=== PATIENT | female | born 1945 | race Caucasian/White ===

== ENCOUNTER 2019-05-15 16:00 | Outpatient (RCR) | payer MEDICARE, OTHER, SELFPAY ==
--- NOTE | 2019-05-10 16:53 | PT.OIE ---
Current Diagnoses Benign paroxysmal vertigo, left ear (05/10/19) Dizziness and giddiness (05/10/19) Past Medical History (Last Reviewed 01/27/19 @ 14:48 by Tiffany Greene DO) Hearing loss (Chronic) Sinus drainage (Chronic) Thyroid nodule (Chronic) Tinnitus (Chronic) Uterine cancer (Chronic ~2011) Vertigo (Chronic) Vision disorder (Chronic) Heavy menstrual period (Resolved) Neck pain (Resolved) Painful menstrual periods (Resolved) Past Surgical History (Last Reviewed 01/27/19 @ 14:48 by Tiffany Greene DO) Anesthesia (Resolved) Status post cholecystectomy (~1963) Status post hysterectomy (~2011) Provider Visit Care Team Role Provider Type Tiffany Greene DO Attending Provider Physician Primary Care Provider Specialty: Family Practice Address: [address] [place] [address] Email: [email or web address] Physical Therapy Initial Evaluation PT-OP-A Visit Information Start: 05/10/19 15:02 Freq: Status: Active Protocol: Document 05/10/19 14:30 DCW (Rec: 05/10/19 16:53 DCW [id number]) Out-Patient Physical Therapy Visit Information Visit Information Visit Type Initial Evaluation Visit Start Time 14:30 Visit Stop Time 15:02 Total Visit Minutes 32 Visit Number 1 Number of CD MIXER HELPER Visits 0 Evaluation Information Evaluation Date 05/10/19 PT-OP-B Current Condition Start: 05/10/19 15:02 Freq: Status: Active Protocol: Document 05/10/19 14:30 DCW (Rec: 05/10/19 16:53 DCW [id number]) Current Condition History of Current Condition Onset Date one month Current Complaints Position-dependent vertigo History of Current Condition Pt is a 73 year old female complaining of a one month history of motion-induced vertigo, as well as a generalized feeling of unsteadiness when up on her feet. 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 Pt reports episodes last a few seconds. Symptoms are provoked by position changes. Pt reports she attempted to do an Jung maneuver on herself from memory, but it did not work. Current Functional Impairments (Reported) Functional Limitations- Other Vertigo with position changes, as well as an overall sense of imbalance PT-OP-C Subjective Start: 05/10/19 15:02 Freq: Status: Active Protocol: Document 05/10/19 14:30 DCW (Rec: 05/10/19 16:53 DCW [id number]) OP-PT Subjective Patient Comments Patient Comments I was laying flat on my back about a month ago, and just knew something was wrong. As soon as I tried to sit up, the spinning started again. Patient Questionnaires Dizziness Handicap Inventory DHI Score 26% DHI Functional Impairment 20 to 39% Impaired (Score 20- 39) PT-OP-O Vestibular Start: 05/10/19 15:02 Freq: Status: Active Protocol: Document 05/10/19 14:30 DCW (Rec: 05/10/19 16:53 DCW [id number]) Vestibular Assessment Screening Tests Vestibular Artery Screen Negative Sharp-Ann Test Negative Visual Testing Smooth Pursuits Horizontal Negative Smooth Pursuits Vertical Negative Saccades Horizontal Negative Gaze Evoked Nystagmus With Fixation Negative Gaze Evoked Nystagmus Without Fixation Negative Heave Test Negative Thrust Head Negative Head Shake Negative Positional Testing S[place]-Hallpike Negative Left Negative Right Rolling Test Negative Left Negative Right Comments Vestibular Comments During left [place]-Hallpike: It just feels like it is right there about to start, it's just not quite spinning. PT-OP-Q Treatments Start: 05/10/19 15:02 Freq: Status: Active Protocol: Document 05/10/19 14:30 DCW (Rec: 05/10/19 16:53 DCW [id number]) Canalithic Repositioning BPPV Treatment Jung Affected Canal(s) Left posterior? Reps x2 PT-OP-T Assessment and Plan Start: 05/10/19 15:02 Freq: Status: Active Protocol: Document 05/10/19 14:30 DCW (Rec: 05/10/19 16:53 DCW [id number]) Physical Therapy Assessment Rehab Potential Rehabilitation Potential Excellent Evaluation Complexity Number of Personal Factors/Comorbidities 0 Number of Body Systems Impaired 1-2 Clinical Presentation at Evaluation Stable Impairments Impairments Balance Vestibular Goals Two Impairment C/o discomfort/weird sensation in left asi-hallpike position Short Term Goal (STG) Negative hallpike bilaterally STG Duration 06/09/19 One Impairment Pt experiences vertigo with laying down in bed, specifically on her left Short Term Goal (STG) Pt to change position in bed with no episode of vertigo for two weeks STG Duration 05/24/19 Assessment Summary Assessment Pt presents with a largely negative vestibular assessment , other than complaints of feeling like I'm about to start spinning, it just isn't happening in left [place]- Hallpike position. However, with her reported symptoms and her history of prior BPPV, a left Jung maneuver was performed. Upon testing pt a second time, pt reported no unusual feeling or sensation, and a second Jung maneuver was performed. Pt felt much better upon sitting, and her sensation of generalized imbalance went away when she was walking out of the clinic. 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 If this is the case, an Jung maneuver can still be effective, and pt may have had a successful treatment. Pt to return in ~1 week for a follow-up appointment, and intermittently afterward as indicated for treatment of BPPV. Physical Therapy Plan Frequency and Duration Frequency of Treatment 1x/Week Duration of Treatment 6 weeks Plan of Care Start Date 05/10/19 Plan of Care End Date 06/21/19 Therapeutic Interventions Therapeutic Interventions Balance Training Canalithic Repositioning Vestibular Rehabilitation Next Visit Focus/Plan Next Note Type Treatment Note Next Visit Plan Further positional testing, CRM and vestibular rehabilitation as indicated
--- NOTE | 2019-05-10 16:54 | PT.OPPOC ---
Current Diagnoses Benign paroxysmal vertigo, left ear (05/10/19) Dizziness and giddiness (05/10/19) Provider Visit Care Team Role Provider Type Tiffany Greene DO Attending Provider Physician Primary Care Provider Specialty: [facility] Address: [address] [place] [address], [id number] Email: [email or web address] Plan Of Care PT-OP-T Assessment and Plan Start: 05/10/19 15:02 Freq: Status: Active Protocol: Document 05/10/19 14:30 DCW (Rec: 05/10/19 16:53 DCW [id number]) Physical Therapy Assessment Rehab Potential Rehabilitation Potential Excellent Evaluation Complexity Number of Personal Factors/Comorbidities 0 Number of Body Systems Impaired 1-2 Clinical Presentation at Evaluation Stable Impairments Impairments Balance Vestibular Goals Two Impairment C/o discomfort/weird sensation in left sai-hallpike position Short Term Goal (STG) Negative hallpike bilaterally STG Duration 06/09/19 One Impairment Pt experiences vertigo with laying down in bed, specifically on her left Short Term Goal (STG) Pt to change position in bed with no episode of vertigo for two weeks STG Duration 05/24/19 Assessment Summary Assessment Pt presents with a largely negative vestibular assessment , other than complaints of feeling like I'm about to start spinning, it just isn't happening in left [place]- Hallpike position. However, with her reported symptoms and her history of prior BPPV, a left Jung maneuver was performed. Upon testing pt a second time, pt reported no unusual feeling or sensation, and a second Jung maneuver was performed. Pt felt much better upon sitting, and her sensation of generalized imbalance went away when she was walking out of the clinic. 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 If this is the case, an Jung maneuver can still be effective, and pt may have had a successful treatment. Pt to return in ~1 week for a follow-up appointment, and intermittently afterward as indicated for treatment of BPPV. Physical Therapy Plan Frequency and Duration Frequency of Treatment 1x/Week Duration of Treatment 6 weeks Plan of Care Start Date 05/10/19 Plan of Care End Date 06/21/19 Therapeutic Interventions Therapeutic Interventions Balance Training Canalithic Repositioning Vestibular Rehabilitation Next Visit Focus/Plan Next Note Type Treatment Note Next Visit Plan Further positional testing, CRM and vestibular rehabilitation as indicated Plan of Care Dates Plan of Care Start Date 05/10/19 Plan of Care End Date 06/21/19 Please Sign and Return: I have reviewed this Plan of Care and certify that the skilled therapy services above are required to meet the patient?s needs. Physician Signature Date Printed Name and Credentials Clinical Instructor Signature Printed Name and Credentials
--- NOTE | 2019-05-15 16:18 | PT.OTN ---
Current Diagnoses Benign paroxysmal vertigo, left ear (05/15/19) Dizziness and giddiness (05/15/19) Physical Therapy Treatment Note PT-OP-A Visit Information Start: 05/10/19 15:02 Freq: Status: Active Protocol: Document 05/15/19 16:00 DCW (Rec: 05/15/19 16:17 DCW [id number]) Out-Patient Physical Therapy Visit Information Visit Information Visit Type Treatment Note Visit Start Time 16:00 Visit Stop Time 16:12 Total Visit Minutes 12 Visit Number 2 Number of MORTGAGE COUNSELOR Visits 0 Evaluation Information Evaluation Date 05/10/19 PT-OP-B Current Condition Start: 05/10/19 15:02 Freq: Status: Active Protocol: Document 05/10/19 14:30 DCW (Rec: 05/10/19 16:53 DCW [id number]) Current Condition History of Current Condition Onset Date one month Current Complaints Position-dependent vertigo History of Current Condition Pt is a 73 year old female complaining of a one month history of motion-induced vertigo, as well as a generalized feeling of unsteadiness when up on her feet. 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 Pt reports episodes last a few seconds. Symptoms are provoked by position changes. Pt reports she attempted to do an Jung maneuver on herself from memory, but it did not work. Current Functional Impairments (Reported) Functional Limitations- Other Vertigo with position changes, as well as an overall sense of imbalance PT-OP-C Subjective Start: 05/10/19 15:02 Freq: Status: Active Protocol: Document 05/15/19 16:00 DCW (Rec: 05/15/19 16:17 DCW [id number]) OP-PT Subjective Patient Comments Patient Comments Pt notes I haven't had that weird feeling since I left here last week. Patient Reported Progress Improving PT-OP-O Vestibular Start: 05/10/19 15:02 Freq: Status: Active Protocol: Document 05/15/19 16:00 DCW (Rec: 05/15/19 16:17 DCW [id number]) Vestibular Assessment Positional Testing [place]-Hallpike Negative Left Negative Right Rolling Test Negative Left Negative Right PT-OP-Q Treatments Start: 05/10/19 15:02 Freq: Status: Active Protocol: Document 05/15/19 16:00 DCW (Rec: 05/15/19 16:17 DCW [id number]) Canalithic Repositioning BPPV Treatment Jung Affected Canal(s) Left posterior PT-OP-T Assessment and Plan Start: 05/10/19 15:02 Freq: Status: Active Protocol: Document 05/15/19 16:00 DCW (Rec: 05/15/19 16:17 DCW [id number]) Physical Therapy Assessment Impairments Impairments Balance Vestibular Goals Two Impairment C/o discomfort/weird sensation in left [place]-hallpike position Short Term Goal (STG) Negative hallpike bilaterally STG Duration 06/09/19 One Impairment Pt experiences vertigo with laying down in bed, specifically on her left Short Term Goal (STG) Pt to change position in bed with no episode of vertigo for two weeks STG Duration 05/24/19 Assessment Summary Assessment Pt reported no further symptoms, either at home since her Jung maneuver, or today during the [place]-Hallpike test. Due to the dependent positioning of the [place]- Hallpike, and the possibility of loose otoconia falling into the canal uring testing, an Jung maneuver was done as a precaution. Pt had no nystagmus and reported no symptoms at any time. Pt would like to have her chart open for one month before discharge , as she has already had one recurrence of BPPV. Physical Therapy Plan Frequency and Duration Frequency of Treatment 1x/Week Duration of Treatment 6 weeks Plan of Care Start Date 05/10/19 Plan of Care End Date 06/21/19 Therapeutic Interventions Therapeutic Interventions Balance Training Canalithic Repositioning Vestibular Rehabilitation Next Visit Focus/Plan Next Note Type Treatment Note Next Visit Plan Further positional testing, CRM and vestibular rehabilitation as indicated. Discharge if pt does not return for treatment within one month.
--- NOTE | 2019-07-01 12:29 | PT.OPDS ---
Current Diagnoses Benign paroxysmal vertigo, left ear (05/15/19) Dizziness and giddiness (05/15/19) Provider Visit Care Team Role Provider Type Tiffany Greene DO Attending Provider Physician Primary Care Provider Specialty: [facility] Address: [address] [place] [address], [facility] Email: [email or web address] Visit Number Visit Number 2 Discharge Summary PT-OP-B Current Condition Start: 05/10/19 15:02 Freq: Status: Active Protocol: Document 05/10/19 14:30 DCW (Rec: 05/10/19 16:53 DCW [id number]) Current Condition History of Current Condition Onset Date one month Current Complaints Position-dependent vertigo History of Current Condition Pt is a 73 year old female complaining of a one month history of motion-induced vertigo, as well as a generalized feeling of unsteadiness when up on her feet. 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 Pt reports episodes last a few seconds. Symptoms are provoked by position changes. Pt reports she attempted to do an Jung maneuver on herself from memory, but it did not work. Current Functional Impairments (Reported) Functional Limitations- Other Vertigo with position changes, as well as an overall sense of imbalance PT-OP-C Subjective Start: 05/10/19 15:02 Freq: Status: Active Protocol: Document 05/15/19 16:00 DCW (Rec: 05/15/19 16:17 DCW [id number]) OP-PT Subjective Patient Comments Patient Comments Pt notes I haven't had that weird feeling since I left here last week. Patient Reported Progress Improving PT-OP-O Vestibular Start: 05/10/19 15:02 Freq: Status: Active Protocol: Document 05/15/19 16:00 DCW (Rec: 05/15/19 16:17 DCW [id number]) Vestibular Assessment Positional Testing [place]-Hallpike Negative Left Negative Right Rolling Test Negative Left Negative Right PT-OP-T Assessment and Plan Start: 05/10/19 15:02 Freq: Status: Active Protocol: Document 07/01/19 12:28 DCW (Rec: 07/01/19 12:29 DCW [id number]) Physical Therapy Assessment Goals Two Impairment C/o discomfort/weird sensation in left sai-hallpike position Short Term Goal (STG) Negative hallpike bilaterally STG Duration Met One Impairment Pt experiences vertigo with laying down in bed, specifically on her left Short Term Goal (STG) Pt to change position in bed with no episode of vertigo for two weeks STG Duration Met Assessment Summary Assessment Pt had been instructed at her last visit to schedule a follow-up within one month if her symptoms recurred. Pt has not scheduled any further vestibular therapy appointments, and will be discharged from skilled PT at this time. Physical Therapy Plan Frequency and Duration Frequency of Treatment 1x/Week Duration of Treatment 6 weeks Plan of Care Start Date 05/10/19 Plan of Care End Date 06/21/19 Therapeutic Interventions Therapeutic Interventions Balance Training Canalithic Repositioning Vestibular Rehabilitation Discharge Physical Therapy Discharge Reasons Goals Met Next Visit Focus/Plan Next Note Type Discharge Summary
== END 2019-07-03 11:41 | disposition home or self-care (01) ==
LOC: PHYS 16:00
PROVIDERS: PCP Family Medicine; Visit Provider Family Medicine
DX: H81.12 Benign paroxysmal vertigo, left ear (principal)
CPT/HCPCS: 95992; 97161

== ENCOUNTER → 2019-07-16 14:32 | Outpatient (CLI) | payer MEDICARE, OTHER, SELFPAY ==
[2019-07-16 15:21] LABS: Blood Urea Nitrogen 12 mg/dL (7-17); Calcium 9.4 mg/dL (8.4-10.2); Carbon Dioxide 28 mmol/L (22-32); Chloride 102 mmol/L (98-107); Cholesterol 206 mg/dL (140-199); Estimated Glomerular Filt Rate > 60.0 mL/min (>60); Glucose 103 mg/dL (80-110); HDL Cholesterol 51 mg/dL (40-60); HEMOLYSIS < 15 (0-50); LDL Cholesterol Calculated 137 mg/dL (<100); Potassium 3.9 mmol/L (3.4-5.1); Sodium 140 mmol/L (137-145); Triglycerides 92 mg/dL (35-150)
[2019-07-16 16:02] LABS: TSH w/ Reflex to FT4 1.05 uIU/mL (0.47-4.68)
== END ==
PROVIDERS: PCP Family Medicine; Visit Provider Registered Nurse
DX: I10 Essential (primary) hypertension (principal)
CPT/HCPCS: 36415; 80048; 80061; 84443

== ENCOUNTER 2020-05-04 11:15 | Outpatient (RCR) | payer MEDICARE, OTHER, SELFPAY ==
--- NOTE | 2020-04-28 15:38 | PT.OIE ---
Current Diagnoses Meniere's disease, left ear (04/28/20) Dizziness and giddiness (04/28/20) Past Medical History (Last Reviewed 08/21/19 @ 13:02 by Tiffany Greene DO) Hearing loss (Chronic) Heavy menstrual period (Resolved) Neck pain (Resolved) Painful menstrual periods (Resolved) Sinus drainage (Chronic) Thyroid nodule (Chronic) Tinnitus (Chronic) Uterine cancer (Chronic ~2011) Vertigo (Chronic) Vision disorder (Chronic) Past Surgical History (Last Reviewed 08/21/19 @ 13:02 by Tiffany Greene DO) Anesthesia (Resolved) Status post cholecystectomy (~1963) Status post hysterectomy (~2011) Visit Care Team Role Provider Type Tiffany Greene DO Attending Provider Physician Primary Care Provider Referring Provider [facility]ty: [facility] Address: [address] [place] [address], [facility] Email: [email or web address] Physical Therapy Initial Evaluation PT-OP-A Visit Information Start: 04/28/20 09:27 Freq: Status: Active Protocol: Document 04/28/20 13:05 MB (Rec: 04/28/20 13:46 MB [id number]) Out-Patient Physical Therapy Visit Information Visit Information Visit Type Initial Evaluation Visit Note Medicare, unlimited visits Visit Start Time 13:05 Visit Stop Time 13:45 Total Visit Minutes 40 Visit Number 1 Evaluation Information Evaluation Date 04/28/20 PT-OP-B Current Condition Start: 04/28/20 09:27 Freq: Status: Active Protocol: Document 04/28/20 13:05 MB (Rec: 04/28/20 13:46 MB [id number]) Current Condition History of Current Condition Onset Date 04/23/2020 Current Complaints 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 She had PT in the past and was treated with maneuvers and got better . She has episodic events. She feels it most when she lies down. She notes that when she tips her head up and down , she can get it. She cannot hear in her right ear. Pt reports meningitis when she was little and has scar tissue in the right ear. Pt denies neck and head pain. She states that her eyes are jumpy. Treatment Goals Patient/Caregiver Goals To have maneuevers performed like before PT-OP-C Subjective Start: 04/28/20 09:27 Freq: Status: Active Protocol: Document 04/28/20 13:05 MB (Rec: 04/28/20 15:38 MB [id number]) OP-PT Subjective Patient Comments Patient Comments Pt states that she got along well with Luis, physical therapist, last PT course and that she would like this PT to perform BPPV maneuvers and treatment today even if you don't see anything. Patient Questionnaires Dizziness Handicap Inventory DHI Functional Impairment 1 to 19% Impaired (Score 1-19) OP-PT Pain Assessment Pain Assessment Grid Paper Pain Assessment Grid Completed No: No pain PT-OP-D Balance Start: 04/28/20 09:27 Freq: Status: Active Protocol: Document 04/28/20 13:05 MB (Rec: 04/28/20 15:38 MB [id number]) OP-PT Balance Assessment Sitting Balance Static Sitting Balance Ability Good Dynamic Sitting Balance Ability Good Sitting Balance Comments UE support with sitting after canalith repositioning maneuver Standing Balance Static Standing Balance Ability Fair Dynamic Standing Balance Ability Fair Standing Balance Comments Pt with unsteadiness after BPPV assessment and treatment and cannot perform Romberg, Romberg with eyes closed or other balance measure [place] Fall Scale Copyright Permission PT-OP-J Posture/Palpation/Skin Start: 04/28/20 09:27 Freq: Status: Active Protocol: Document 04/28/20 13:05 MB (Rec: 04/28/20 15:38 MB [id number]) Posture Evaluation Comments Posture Comments Forward head, rounded shoulders, poor cervical ROM PT-OP-K Range of Motion Start: 04/28/20 09:27 Freq: Status: Active Protocol: Document 04/28/20 13:05 MB (Rec: 04/28/20 15:38 MB [id number]) Cervical Spine Range of Motion Cervical Spine Active Testing Position Sitting Flexion 40 Extension 15 Rotation Left 40 Rotation Right 40 Comments Pt with limited passive extension with [place]-Hallpike that makes initial testing difficult and she also tends to flex her head, holding her head up, making positioning difficult Shoulder Goniometric Range of Motion Shoulder Left Shoulder ROM WFL Yes Testing Position Sitting right Shoulder ROM WFL Yes Testing Position Sitting PT-OP-O Vestibular Start: 04/28/20 09:27 Freq: Status: Active Protocol: Document 04/28/20 13:05 MB (Rec: 04/28/20 15:38 MB [id number]) Vestibular Assessment Visual Testing Gaze Evoked Nystagmus With Fixation Negative Gaze Evoked Nystagmus Without Fixation Negative Spontaneous Nystagmus Negative Positional Testing [place]-Hallpike Positive Left,Negative Right, Upbeating,< 60 Seconds Rolling Test Negative Left,Negative Right Comments Vestibular Comments Pt clearly states that she wants to be tested and treated for positional vertigo like she was before with therapist, Luis, and this limits PT assessment B shoulder flexion and elbow extension are normal PT-OP-Q Treatments Start: 04/28/20 09:27 Freq: Status: Active Protocol: Document 04/28/20 13:05 MB (Rec: 04/28/20 15:38 MB [id number]) Neuro Re-Education Treatment Vestibular Rehabilitation Canalith repositioning maneuver Comments Left posterior canalith repositioning maneuver--pt's nystagmus is delayed, faint and does wane, but it is difficult to exactly determine time, likely less than 60 sec Self-Care/Home Management Treatment Education Other Education Handout and education about BPPV, gentle movement of head and neck, cervical support at night for sleeping and increasing non-caffeinated fluid intake Canalithic Repositioning BPPV Treatment Other Comments Left posterior canalith repositioning maneuver PT-OP-T Assessment and Plan Start: 04/28/20 09:27 Freq: Status: Active Protocol: Document 04/28/20 13:05 MB (Rec: 04/28/20 15:38 [id number]) Physical Therapy Assessment Rehab Potential Rehabilitation Potential Good Evaluation Complexity Number of Personal Factors/Comorbidities 0 Number of Body Systems Impaired 1-2 Clinical Presentation at Evaluation Stable Impairments Impairments Balance,Functional Activities, Functional Mobility,Gait, Posture,ROM,Soft Tissue Mobility,Vestibular Goals Two Care Home Goal (LTG) Pt will present with no dizziness or nystagmus with rolling in bed or BPPV testing to improve bed mobility by 05/28/2020. LTG Duration 4 weeks One Care Home Goal (LTG) Pt will perform HEP including postural, cervical ROM, balance and VOR exercises with I to improve functional mobility and balance by 2019. LTG Duration 4 weeks Assessment Summary Assessment Pt is a 74 y/o female who arrives stating that she liked working with therapistLuis, and that she would like this therapist to assess and treat for positional vertigo like he did so that she can con't on like normal until she gets another flare of the vertigo. She is agreeable to working with this PT. Pt's reports of what she would like to have done during treatment makes PT assessment brief. More time spent on treatment. She presents with left posterior canalithiasis, and nystagmus has delayed onset and is very faint. It does appear less than 60 sec with regard to symptomology and so canalith repositioning maneuver performed this date. Pt guards her neck and so getting [place]- Hallpike position and maneuver positions is very difficult. She might need further BPPV treatment. She has limited cervical mobility. PT educates pt on benefits of exercises to help with neck, etc. In previous treatment courses, pt verbalizes that she only came for treatment of BPPV and then stopped PT. This might be a barrier to complete vestibular course. She states at the end of the eval that she would like to work this therapist as well as Luis. Physical Therapy Plan Frequency and Duration Frequency of Treatment 2x/Week Duration of Treatment 4 weeks Plan of Care Start Date 04/28/20 Plan of Care End Date 05/28/20 Therapeutic Interventions Therapeutic Interventions Balance Training,Canalithic Repositioning,Gait Training, Home Exercise Program,Joint Mobilizations,Manual Therapy, Neuromuscular Re-education, Patient/Caregiver Education, Self-Care/Home Management,Soft Tissue Mobilization, Therapeutic Activities, Therapeutic Exercises, Vestibular Rehabilitation Modalities Cold Pack/Ice Massage,Hot Packs Next Visit Focus/Plan Next Note Type Treatment Note Next Visit Plan Re-check BPPV and treat if needed
--- NOTE | 2020-04-28 15:38 | PT.OPPOC ---
Physical, Occupational & Speech Therapy At [facility] Current Diagnoses Meniere's disease, left ear (04/28/20) Dizziness and giddiness (04/28/20) Visit Care Team Role Provider Type Tiffany Greene DO Attending Provider Physician Primary Care Provider Referring Provider Specialty: [facility] Address: [address] [place] [address], [place], [address] Email: [email or web address] Plan Of Care PT-OP-T Assessment and Plan Start: 04/28/20 09:27 Freq: Status: Active Protocol: Document 04/28/20 13:05 MB (Rec: 04/28/20 15:38 MB [id number]) Physical Therapy Assessment Rehab Potential Rehabilitation Potential Good Evaluation Complexity Number of Personal Factors/Comorbidities 0 Number of Body Systems Impaired 1-2 Clinical Presentation at Evaluation Stable Impairments Impairments Balance,Functional Activities, Functional Mobility,Gait, Posture,ROM,Soft Tissue Mobility,Vestibular Goals Two Halfway Goal (LTG) Pt will present with no dizziness or nystagmus with rolling in bed or BPPV testing to improve bed mobility by 05/28/2020. LTG Duration 4 weeks One [employer] Goal (LTG) Pt will perform HEP including postural, cervical ROM, balance and VOR exercises with I to improve functional mobility and balance by 2019. LTG Duration 4 weeks Assessment Summary Assessment Pt is a 74 y/o female who arrives stating that she liked working with therapist, Luis, and that she would like this therapist to assess and treat for positional vertigo like he did so that she can con't on like normal until she gets another flare of the vertigo. She is agreeable to working with this PT. Pt's reports of what she would like to have done during treatment makes PT assessment brief. More time spent on treatment. She presents with left posterior canalithiasis, and nystagmus has delayed onset and is very faint. It does appear less than 60 sec with regard to symptomology and so canalith repositioning maneuver performed this date. Pt guards her neck and so getting [place]- Hallpike position and maneuver positions is very difficult. She might need further BPPV treatment. She has limited cervical mobility. PT educates pt on benefits of exercises to help with neck, etc. In previous treatment courses, pt verbalizes that she only came for treatment of BPPV and then stopped PT. This might be a barrier to complete vestibular course. She states at the end of the eval that she would like to work this therapist as well as Luis. Physical Therapy Plan Frequency and Duration Frequency of Treatment 2x/Week Duration of Treatment 4 weeks Plan of Care Start Date 04/28/20 Plan of Care End Date 05/28/20 Therapeutic Interventions Therapeutic Interventions Balance Training,Canalithic Repositioning,Gait Training, Home Exercise Program,Joint Mobilizations,Manual Therapy, Neuromuscular Re-education, Patient/Caregiver Education, Self-Care/Home Management,Soft Tissue Mobilization, Therapeutic Activities, Therapeutic Exercises, Vestibular Rehabilitation Modalities Cold Pack/Ice Massage,Hot Packs Next Visit Focus/Plan Next Note Type Treatment Note Next Visit Plan Re-check BPPV and treat if needed Plan of Care Dates Plan of Care Start Date 04/28/20 Plan of Care End Date 05/28/20 Electronically Signed by: Jewell Whiteside PT 04/28/20 0832 Please Sign and Return: I have reviewed this Plan of Care and certify that the skilled therapy services above are required to meet the patient?s needs. Physician Signature Date Printed Name and Credentials Clinical Instructor Signature Printed Name and Credentials
--- NOTE | 2020-04-30 11:42 | PT.OTN ---
Current Diagnoses Meniere's disease, left ear (04/30/20) Dizziness and giddiness (04/30/20) Physical Therapy Treatment Note PT-OP-A Visit Information Start: 04/28/20 09:27 Freq: Status: Active Protocol: Document 04/30/20 10:53 MB (Rec: 04/30/20 11:22 MB [id number]) Out-Patient Physical Therapy Visit Information Visit Information Visit Type Treatment Note Visit Note Medicare, unlimited visits Pt arrives 23' late to appointment Visit Start Time 10:53 Visit Stop Time 11:21 Total Visit Minutes 28 Visit Number 2 PT-OP-B Current Condition Start: 04/28/20 09:27 Freq: Status: Active Protocol: Document 04/28/20 13:05 MB (Rec: 04/28/20 13:46 MB [id number]) Current Condition History of Current Condition Onset Date 04/23/2020 Current Complaints 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 She had PT in the past and was treated with maneuvers and got better . She has episodic events. She feels it most when she lies down. She notes that when she tips her head up and down , she can get it. She cannot hear in her right ear. Pt reports meningitis when she was little and has scar tissue in the right ear. Pt denies neck and head pain. She states that her eyes are jumpy. Treatment Goals Patient/Caregiver Goals To have maneuevers performed like before PT-OP-C Subjective Start: 04/28/20 09:27 Freq: Status: Active Protocol: Document 04/30/20 10:53 MB (Rec: 04/30/20 11:22 MB [id number]) OP-PT Subjective Patient Comments Patient Comments Pt states that she was okay after treatment on Monday but yesterday had two short episodes of vertigo. She sat up this morning and then it was terrible. PT-OP-D Balance Start: 04/28/20 09:27 Freq: Status: Active Protocol: Document 04/28/20 13:05 MB (Rec: 04/28/20 15:38 MB [id number]) OP-PT Balance Assessment Sitting Balance Static Sitting Balance Ability Good Dynamic Sitting Balance Ability Good Sitting Balance Comments UE support with sitting after canalith repositioning maneuver Standing Balance Static Standing Balance Ability Fair Dynamic Standing Balance Ability Fair Standing Balance Comments Pt with unsteadiness after BPPV assessment and treatment and cannot perform Romberg, Romberg with eyes closed or other balance measure [place] Fall Scale Copyright Permission PT-OP-J Posture/Palpation/Skin Start: 04/28/20 09:27 Freq: Status: Active Protocol: Document 04/28/20 13:05 MB (Rec: 04/28/20 15:38 MB [id number]) Posture Evaluation Comments Posture Comments Forward head, rounded shoulders, poor cervical ROM PT-OP-K Range of Motion Start: 04/28/20 09:27 Freq: Status: Active Protocol: Document 04/28/20 13:05 MB (Rec: 04/28/20 15:38 MB [id number]) Cervical Spine Range of Motion Cervical Spine Active Testing Position Sitting Flexion 40 Extension 15 Rotation Left 40 Rotation Right 40 Comments Pt with limited passive extension with [place]-Hallpike that makes initial testing difficult and she also tends to flex her head, holding her head up, making positioning difficult Shoulder Goniometric Range of Motion Shoulder Left Shoulder ROM WFL Yes Testing Position Sitting right Shoulder ROM WFL Yes Testing Position Sitting PT-OP-O Vestibular Start: 04/28/20 09:27 Freq: Status: Active Protocol: Document 04/28/20 13:05 MB (Rec: 04/28/20 15:38 MB [id number]) Vestibular Assessment Visual Testing Gaze Evoked Nystagmus With Fixation Negative Gaze Evoked Nystagmus Without Fixation Negative Spontaneous Nystagmus Negative Positional Testing [place]-Hallpike Positive Left,Negative Right, Upbeating,< 60 Seconds Rolling Test Negative Left,Negative Right Comments Vestibular Comments Pt clearly states that she wants to be tested and treated for positional vertigo like she was before with therapist, Luis, and this limits PT assessment B shoulder flexion and elbow extension are normal PT-OP-Q Treatments Start: 04/28/20 09:27 Freq: Status: Active Protocol: Document 04/30/20 10:53 MB (Rec: 04/30/20 11:41 MB [id number]) Self-Care/Home Management Treatment Education Other Education Ongoing education about loose neck, gentle cervical rotation and extension and flexion today, if steady enough, go for walk with boyfriend nearby , ongoing non-caffeinated fluid intake, difficulty on getting canalith repositioning maneuver done because pt does not follow commands for relaxing head and neck despite cues, PT support, repositioning. Canalithic Repositioning BPPV Treatment Other Comments Once again, pt does not present with nystagmus, but treated for right posterior canalithiasis today per sxs as pt and boyfriend are very forward about wanting treatment. Pt feels worse after canalith repositioning and so treated with Semont for the right ear PT-OP-T Assessment and Plan Start: 04/28/20 09:27 Freq: Status: Active Protocol: Document 04/30/20 10:53 MB (Rec: 04/30/20 11:41 MB [id number]) Physical Therapy Assessment Rehab Potential Rehabilitation Potential Good Evaluation Complexity Number of Personal Factors/Comorbidities 0 Number of Body Systems Impaired 1-2 Clinical Presentation at Evaluation Stable Impairments Impairments Balance,Functional Activities, Functional Mobility,Gait, Posture,ROM,Soft Tissue Mobility,Vestibular Goals Two Viscera [employer]her Goal (LTG) Pt will present with no dizziness or nystagmus with rolling in bed or BPPV testing to improve bed mobility by 05/28/2020. LTG Duration 4 weeks One Nursing Home Goal (LTG) Pt will perform HEP including postural, cervical ROM, balance and VOR exercises with I to improve functional mobility and balance by 2019. LTG Duration 4 weeks Assessment Summary Assessment Pt arrives 23' minutes late walking unsteadily, holding onto boyfriend. W/c to transport back to room. Boyfriend shows photo about what he wants PT to do. PT states that PT will assess and treat BPPV one more time but will also con't to monitor if pt has another issue. Pt is also insistent that she wants maneuver for her right ear. No nystagmus with right [place]- Hallpike and canalith repositioning worsens symptoms so treated with Semont today as well. Pt ise not compliant with instructions to relax her neck during treatment and so canalith repositionin maneuver replaced by Semont. Pt is able to walk with superv after treatment and move head. Pt denies change in sensation, blurred vision and gait is better after maneuver. Her neck is very stiff and this is a contributing factor to her problem. She has ongoing open areas behind her ears from cosmetic surgery and pt is unwilling to cover and so PT wears gloves. Once again, pt is very adamant and boyfriend as well about what they want from PT treatment, which is a barrier. Pt's previous PT, Luis, to see pt on Monday. Con 't to assess and monitor. If suspected BPPV is treated again, recommend Semont for pt positioning. Physical Therapy Plan Frequency and Duration Frequency of Treatment 2x/Week Duration of Treatment 4 weeks Plan of Care Start Date 04/28/20 Plan of Care End Date 05/28/20 Therapeutic Interventions Therapeutic Interventions Balance Training,Canalithic Repositioning,Gait Training, Home Exercise Program,Joint Mobilizations,Manual Therapy, Neuromuscular Re-education, Patient/Caregiver Education, Self-Care/Home Management,Soft Tissue Mobilization, Therapeutic Activities, Therapeutic Exercises, Vestibular Rehabilitation Modalities Cold Pack/Ice Massage,Hot Packs Next Visit Focus/Plan Next Note Type Treatment Note Next Visit Plan Re-check BPPV and treat if needed, Semont if treated
--- NOTE | 2020-05-04 12:00 | PT.OTN ---
Current Diagnoses Meniere's disease, left ear (05/04/20) Dizziness and giddiness (05/04/20) Physical Therapy Treatment Note PT-OP-A Visit Information Start: 04/28/20 09:27 Freq: Status: Active Protocol: Document 05/04/20 11:15 DCW (Rec: 05/04/20 11:59 DCW [id number]) Out-Patient Physical Therapy Visit Information Visit Information Visit Type Treatment Note Visit Start Time 11:15 Visit Stop Time 11:45 Total Visit Minutes 30 Visit Number 3 Evaluation Information Evaluation Date 04/28/20 PT-OP-B Current Condition Start: 04/28/20 09:27 Freq: Status: Active Protocol: Document 04/28/20 13:05 MB (Rec: 04/28/20 13:46 MB [id number]) Current Condition History of Current Condition Onset Date 04/23/2020 Current Complaints 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 She had PT in the past and was treated with maneuvers and got better . She has episodic events. She feels it most when she lies down. She notes that when she tips her head up and down , she can get it. She cannot hear in her right ear. Pt reports meningitis when she was little and has scar tissue in the right ear. Pt denies neck and head pain. She states that her eyes are jumpy. Treatment Goals Patient/Caregiver Goals To have maneuevers performed like before PT-OP-C Subjective Start: 04/28/20 09:27 Freq: Status: Active Protocol: Document 05/04/20 11:15 DCW (Rec: 05/04/20 11:59 DCW [id number]) OP-PT Subjective Patient Comments Patient Comments Pt reports that after her first session, she was much worse, but after her second, she was better, but still feels the sensation/pressure/ fullness across her forehead, which is a frequent symptoms she gets during an episode of BPPV, so she thinks she still has some ongoing problems. PT-OP-D Balance Start: 04/28/20 09:27 Freq: Status: Active Protocol: Document 04/28/20 13:05 MB (Rec: 04/28/20 15:38 MB [id number]) OP-PT Balance Assessment Sitting Balance Static Sitting Balance Ability Good Dynamic Sitting Balance Ability Good Sitting Balance Comments UE support with sitting after canalith repositioning maneuver Standing Balance Static Standing Balance Ability Fair Dynamic Standing Balance Ability Fair Standing Balance Comments Pt with unsteadiness after BPPV assessment and treatment and cannot perform Romberg, Romberg with eyes closed or other balance measure Barrow Fall Scale Copyright Permission PT-OP-J Posture/Palpation/Skin Start: 04/28/20 09:27 Freq: Status: Active Protocol: Document 04/28/20 13:05 MB (Rec: 04/28/20 15:38 MB [id number]) Posture Evaluation Comments Posture Comments Forward head, rounded shoulders, poor cervical ROM PT-OP-K Range of Motion Start: 04/28/20 09:27 Freq: Status: Active Protocol: Document 04/28/20 13:05 MB (Rec: 04/28/20 15:38 MB [id number]) Cervical Spine Range of Motion Cervical Spine Active Testing Position Sitting Flexion 40 Extension 15 Rotation Left 40 Rotation Right 40 Comments Pt with limited passive extension with Sailaja-Hallpike that makes initial testing difficult and she also tends to flex her head, holding her head up, making positioning difficult Shoulder Goniometric Range of Motion Shoulder Left Shoulder ROM WFL Yes Testing Position Sitting right Shoulder ROM WFL Yes Testing Position Sitting PT-OP-O Vestibular Start: 04/28/20 09:27 Freq: Status: Active Protocol: Document 05/04/20 11:15 DCW (Rec: 05/04/20 11:59 DCW [id number]) Vestibular Assessment Positional Testing Sailaja-Hallpike Positive Left,Negative Right, Upbeating,< 60 Seconds Rolling Test Negative Left,Negative Right Comments Vestibular Comments Pt displayed very mild upbeating nystagmus with left Hallpike. PT-OP-Q Treatments Start: 04/28/20 09:27 Freq: Status: Active Protocol: Document 05/04/20 11:15 DCW (Rec: 05/04/20 11:59 DCW [id number]) Canalithic Repositioning BPPV Treatment Other Affected Canal(s) Left Posterior Reps x2 Comments Modified Jung PT-OP-T Assessment and Plan Start: 04/28/20 09:27 Freq: Status: Active Protocol: Document 05/04/20 11:15 DCW (Rec: 05/04/20 11:59 DCW [id number]) Physical Therapy Assessment Impairments Impairments Balance,Functional Activities, Functional Mobility,Gait, Posture,ROM,Soft Tissue Mobility,Vestibular Goals Two Mcfp Goal (LTG) Pt will present with no dizziness or nystagmus with rolling in bed or BPPV testing to improve bed mobility by 05/28/2020. LTG Duration 4 weeks One Bellhop Captain Goal (LTG) Pt will perform HEP including postural, cervical ROM, balance and VOR exercises with I to improve functional mobility and balance by 2019. LTG Duration 4 weeks Assessment Summary Assessment Pt tolerated treatment well today, demonstrated improved mobility and was able to perform necessary cervical ROM for modified Jung. Pt had mild symptoms and displayed short burst of upbeating, torsional nystagmus in left Hallpike position. Pt felt better following CRM. Physical Therapy Plan Frequency and Duration Frequency of Treatment 2x/Week Duration of Treatment 4 weeks Plan of Care Start Date 04/28/20 Plan of Care End Date 05/28/20 Therapeutic Interventions Therapeutic Interventions Balance Training,Canalithic Repositioning,Gait Training, Home Exercise Program,Joint Mobilizations,Manual Therapy, Neuromuscular Re-education, Patient/Caregiver Education, Self-Care/Home Management,Soft Tissue Mobilization, Therapeutic Activities, Therapeutic Exercises, Vestibular Rehabilitation Modalities Cold Pack/Ice Massage,Hot Packs Next Visit Focus/Plan Next Note Type Treatment Note Next Visit Plan Re-check BPPV and treat if needed, Semont if treated
--- NOTE | 2020-05-18 09:35 | PT.OPDS ---
Current Diagnoses Meniere's disease, left ear (05/04/20) Dizziness and giddiness (05/04/20) Visit Care Team Role Provider Type Tiffany Greene DO Attending Provider Physician Primary Care Provider Referring Provider Specialty: [facility] Address: [address] [place] [address], [facility] [place], [address] Email: [email or web address] Visit Number Visit Number 3 Discharge Summary PT-OP-B Current Condition Start: 04/28/20 09:27 Freq: Status: Active Protocol: Document 04/28/20 13:05 MB (Rec: 04/28/20 13:46 MB [id number]) Current Condition History of Current Condition Onset Date 04/23/2020 Current Complaints 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 She had PT in the past and was treated with maneuvers and got better . She has episodic events. She feels it most when she lies down. She notes that when she tips her head up and down , she can get it. She cannot hear in her right ear. Pt reports meningitis when she was little and has scar tissue in the right ear. Pt denies neck and head pain. She states that her eyes are jumpy. Treatment Goals Patient/Caregiver Goals To have maneuevers performed like before PT-OP-C Subjective Start: 04/28/20 09:27 Freq: Status: Active Protocol: Document 05/04/20 11:15 DCW (Rec: 05/04/20 11:59 DCW [id number]) OP-PT Subjective Patient Comments Patient Comments Pt reports that after her first session, she was much worse, but after her second, she was better, but still feels the sensation/pressure/ fullness across her forehead, which is a frequent symptoms she gets during an episode of BPPV, so she thinks she still has some ongoing problems. PT-OP-D Balance Start: 04/28/20 09:27 Freq: Status: Active Protocol: Document 04/28/20 13:05 MB (Rec: 04/28/20 15:38 MB [id number]) OP-PT Balance Assessment Sitting Balance Static Sitting Balance Ability Good Dynamic Sitting Balance Ability Good Sitting Balance Comments UE support with sitting after canalith repositioning maneuver Standing Balance Static Standing Balance Ability Fair Dynamic Standing Balance Ability Fair Standing Balance Comments Pt with unsteadiness after BPPV assessment and treatment and cannot perform Romberg, Romberg with eyes closed or other balance measure Barrow Fall Scale Copyright Permission PT-OP-J Posture/Palpation/Skin Start: 04/28/20 09:27 Freq: Status: Active Protocol: Document 04/28/20 13:05 MB (Rec: 04/28/20 15:38 MB [id number]) Posture Evaluation Comments Posture Comments Forward head, rounded shoulders, poor cervical ROM PT-OP-K Range of Motion Start: 04/28/20 09:27 Freq: Status: Active Protocol: Document 04/28/20 13:05 MB (Rec: 04/28/20 15:38 MB [id number]) Cervical Spine Range of Motion Cervical Spine Active Testing Position Sitting Flexion 40 Extension 15 Rotation Left 40 Rotation Right 40 Comments Pt with limited passive extension with Nicholson-Hallpike that makes initial testing difficult and she also tends to flex her head, holding her head up, making positioning difficult Shoulder Goniometric Range of Motion Shoulder Left Shoulder ROM WFL Yes Testing Position Sitting right Shoulder ROM WFL Yes Testing Position Sitting PT-OP-O Vestibular Start: 04/28/20 09:27 Freq: Status: Active Protocol: Document 05/04/20 11:15 DCW (Rec: 05/04/20 11:59 DCW [id number]) Vestibular Assessment Positional Testing Nicholson-Hallpike Positive Left,Negative Right, Upbeating,< 60 Seconds Rolling Test Negative Left,Negative Right Comments Vestibular Comments Pt displayed very mild upbeating nystagmus with left Hallpike. PT-OP-T Assessment and Plan Start: 04/28/20 09:27 Freq: Status: Active Protocol: Document 05/18/20 09:33 DCW (Rec: 05/18/20 09:35 DCW [id number]) Physical Therapy Assessment Goals Two Scrap Hoist Operator Goal (LTG) Pt will present with no dizziness or nystagmus with rolling in bed or BPPV testing to improve bed mobility by 05/28/2020. LTG Duration 4 weeks One Scrap Hoist Operator Goal (LTG) Pt will perform HEP including postural, cervical ROM, balance and VOR exercises with I to improve functional mobility and balance by 2019. LTG Duration 4 weeks Assessment Summary Assessment Pt phoned clinic to request discharge, states she is doing well and does not feel like she needs any more treatment. Physical Therapy Plan Discharge Physical Therapy Discharge Reasons Patient Request Next Visit Focus/Plan Next Note Type Discharge Summary
== END 2020-05-19 12:17 ==
LOC: PHYS 11:15
PROVIDERS: PCP Family Medicine; Referring Provider Family Medicine; Visit Provider Family Medicine
DX: H81.02 Meniere's disease, left ear (principal)
CPT/HCPCS: 95992; 97140; 97161; 97535

== ENCOUNTER 2020-07-02 13:45 | Outpatient (RCR) | payer MEDICARE, OTHER, SELFPAY ==
--- NOTE | 2020-06-10 18:03 | PT.OIE ---
Current Diagnoses Meniere's disease, left ear (06/10/20) Benign paroxysmal vertigo, right ear (06/10/20) Dizziness and giddiness (06/10/20) History of falling (06/10/20) Past Medical History (Last Reviewed 08/21/19 @ 13:02 by Tiffany Greene DO) Hearing loss (Chronic) Heavy menstrual period (Resolved) Neck pain (Resolved) Painful menstrual periods (Resolved) Sinus drainage (Chronic) Thyroid nodule (Chronic) Tinnitus (Chronic) Uterine cancer (Chronic ~2011) Vertigo (Chronic) Vision disorder (Chronic) Past Surgical History (Last Reviewed 08/21/19 @ 13:02 by Tiffany Greene DO) Anesthesia (Resolved) Status post cholecystectomy (~1963) Status post hysterectomy (~2011) Visit Care Team Role Provider Type Tiffany Greene DO Attending Provider Physician Primary Care Provider Referring Provider Specialty: Family [facility] Address: [address] [place] [address] Email: [email or web address] Physical Therapy Initial Evaluation PT-OP-A Visit Information Start: 06/10/20 17:46 Freq: Status: Active Protocol: Document 06/10/20 13:45 DCW (Rec: 06/10/20 17:53 DCW [id number]) Out-Patient Physical Therapy Visit Information Visit Information Visit Type Initial Evaluation Visit Start Time 13:45 Visit Stop Time 14:30 Total Visit Minutes 45 Visit Number 1 Number of CRAB FISHER Visits 0 Evaluation Information Evaluation Date 06/10/20 PT-OP-B Current Condition Start: 06/10/20 17:46 Freq: Status: Active Protocol: Document 06/10/20 13:45 DCW (Rec: 06/10/20 17:53 DCW [id number]) Current Condition History of Current Condition Onset Date 06/08/20 Current Complaints Position-dependent vertigo History of Current Condition Pt is a 74 year old female complaining of a two day history of motion-induced vertigo. Pt has been treated at this clinic for BPPV multiple times in the past, and notes that these symptoms are exactly the same. Pt notes that she fell almost one week ago and badly hit her head, reports she was not dizzy at the time of the fall, but has noticed her symptoms return since then. Pt denies recent hearing changes, tinnitus, diplopia, dysarthria , discoordination, or decreased mentation/ consciousness. Pt reports symptoms are not waxing/waning in nature. PT-OP-C Subjective Start: 06/10/20 17:46 Freq: Status: Active Protocol: Document 06/10/20 13:45 DCW (Rec: 06/10/20 17:53 DCW [id number]) OP-PT Subjective Patient Comments Patient Comments I can feel it coming on every time I lay down. Patient Questionnaires Dizziness Handicap Inventory DHI Score 20% PT-OP-O Vestibular Start: 06/10/20 17:46 Freq: Status: Active Protocol: Document 06/10/20 13:45 DCW (Rec: 06/10/20 18:01 DCW [id number]) Vestibular Assessment Screening Tests Vestibular Artery Screen Negative Sharp-Ann Test Negative Positional Testing Sailaja-Hallpike Positive Left,Positive Right, Upbeating,Downbeating,< 60 Seconds Comments Vestibular Comments During leftDix-Hallpike test, pt complained of vertigo and demonstrated up-beating, torsional nystagmus lasting approximately 15 seconds. Upon rolling to the right for the second step of the Jung maneuver, pt's nystagmus changed to down-beating torsional lasting 20 seconds. PT-OP-Q Treatments Start: 06/10/20 17:46 Freq: Status: Active Protocol: Document 06/10/20 13:45 DCW (Rec: 06/10/20 18:01 DCW [id number]) Canalithic Repositioning BPPV Treatment Other Affected Canal(s) Right anterior? Reps x1 Comments Head hang Jung Affected Canal(s) Left posterior Reps x3 PT-OP-T Assessment and Plan Start: 06/10/20 17:46 Freq: Status: Active Protocol: Document 06/10/20 13:45 DCW (Rec: 06/10/20 18:01 DCW [id number]) Physical Therapy Assessment Rehab Potential Rehabilitation Potential Good Evaluation Complexity Number of Personal Factors/Comorbidities 1-2 Number of Body Systems Impaired 1-2 Impairments Impairments Balance,Vestibular Goals Two Impairment Positional vertigo Long-Term Goal (LTG) Pt will present with no dizziness or nystagmus with rolling in bed or BPPV testing to improve bed mobility LTG Duration 07/11/20 One Impairment DHI score of 20% X Ray Inspector Goal (LTG) Pt to score <6% on DHI LTG Duration 07/11/20 Assessment Summary Assessment During left/right Sailaja-Hallpike test, pt complained of vertigo and demonstrated up- beating, torsional nystagmus lasting approximately 15 seconds, consistent with diagnosis of left/right-sided posterior canal BPPV, canalithiasis-type. Upon rolling to the right for the second step of the Jung maneuver, pt's nystagmus changed to down-beating torsional lasting 20 seconds. This could be a sign of right- sided anterior canal BPPV, which is incredibly rare, or it may be a sign of otolith stuck in the short-arm of her left posterior canal, which is also very rare. Due to her recent head injury, both of these things may be slightly more likely, but best scenario will likely be to treat left posterior canal, and then determine which symptoms remain afterward. Physical Therapy Plan Frequency and Duration Frequency of Treatment 2x/Week Duration of Treatment 6 weeks Plan of Care Start Date 06/10/20 Plan of Care End Date 07/22/20 Therapeutic Interventions Therapeutic Interventions Balance Training,Canalithic Repositioning,Patient/ Caregiver Education,Self-Care/ Home Management,Therapeutic Exercises,Vestibular Rehabilitation Next Visit Focus/Plan Next Note Type Treatment Note Next Visit Plan Positional testing, CRM as indicated
--- NOTE | 2020-06-10 18:04 | PT.OPPOC ---
Physical, Occupational & Speech Therapy At [facility] Current Diagnoses Meniere's disease, left ear (06/10/20) Benign paroxysmal vertigo, right ear (06/10/20) Dizziness and giddiness (06/10/20) History of falling (06/10/20) Visit Care Team Role Provider Type Tiffany Greene DO Attending Provider Physician Primary Care Provider Referring Provider Specialty: Family Practice Address: [address] [place] [address], [facility] [place], [address] Email: [email or web address] Plan Of Care PT-OP-T Assessment and Plan Start: 06/10/20 17:46 Freq: Status: Active Protocol: Document 06/10/20 13:45 DCW (Rec: 06/10/20 18:01 DCW [id number]) Physical Therapy Assessment Rehab Potential Rehabilitation Potential Good Evaluation Complexity Number of Personal Factors/Comorbidities 1-2 Number of Body Systems Impaired 1-2 Impairments Impairments Balance,Vestibular Goals Two Impairment Positional vertigo Assembly Line Brazer Goal (LTG) Pt will present with no dizziness or nystagmus with rolling in bed or BPPV testing to improve bed mobility LTG Duration 07/11/20 One Impairment DHI score of 20% Jail Goal (LTG) Pt to score <6% on DHI LTG Duration 07/11/20 Assessment Summary Assessment During left/right Sailaja-Hallpike test, pt complained of vertigo and demonstrated up- beating, torsional nystagmus lasting approximately 15 seconds, consistent with diagnosis of left/right-sided posterior canal BPPV, canalithiasis-type. Upon rolling to the right for the second step of the Jung maneuver, pt's nystagmus changed to down-beating torsional lasting 20 seconds. This could be a sign of right- sided anterior canal BPPV, which is incredibly rare, or it may be a sign of otolith stuck in the short-arm of her left posterior canal, which is also very rare. Due to her recent head injury, both of these things may be slightly more likely, but best scenario will likely be to treat left posterior canal, and then determine which symptoms remain afterward. Physical Therapy Plan Frequency and Duration Frequency of Treatment 2x/Week Duration of Treatment 6 weeks Plan of Care Start Date 06/10/20 Plan of Care End Date 07/22/20 Therapeutic Interventions Therapeutic Interventions Balance Training,Canalithic Repositioning,Patient/ Caregiver Education,Self-Care/ Home Management,Therapeutic Exercises,Vestibular Rehabilitation Next Visit Focus/Plan Next Note Type Treatment Note Next Visit Plan Positional testing, CRM as indicated Plan of Care Dates Plan of Care Start Date 06/10/20 Plan of Care End Date 07/22/20 Electronically Signed by: Jax Rodrigues, PT 06/10/20 3810 Please Sign and Return: I have reviewed this Plan of Care and certify that the skilled therapy services above are required to meet the patient?s needs. Physician Signature Date Printed Name and Credentials Clinical Instructor Signature Printed Name and Credentials
--- NOTE | 2020-06-10 18:05 | PT.OPPOC ---
Physical, Occupational & Speech Therapy At [facility] Current Diagnoses Meniere's disease, left ear (06/10/20) Benign paroxysmal vertigo, right ear (06/10/20) Dizziness and giddiness (06/10/20) History of falling (06/10/20) Visit Care Team Role Provider Type Tiffany Greene DO Attending Provider Physician Primary Care Provider Referring Provider Specialty: Family Practice Address: [address] [place] [address], [facility] [place], [address] Email: [email or web address] Plan Of Care PT-OP-T Assessment and Plan Start: 06/10/20 17:46 Freq: Status: Active Protocol: Document 06/10/20 13:45 DCW (Rec: 06/10/20 18:01 DCW [id number]) Physical Therapy Assessment Rehab Potential Rehabilitation Potential Good Evaluation Complexity Number of Personal Factors/Comorbidities 1-2 Number of Body Systems Impaired 1-2 Impairments Impairments Balance,Vestibular Goals Two Impairment Positional vertigo Supply Chain Coordinator Goal (LTG) Pt will present with no dizziness or nystagmus with rolling in bed or BPPV testing to improve bed mobility LTG Duration 07/11/20 One Impairment DHI score of 20% Assisted Goal (LTG) Pt to score <6% on DHI LTG Duration 07/11/20 Assessment Summary Assessment During left/right Sailaja-Hallpike test, pt complained of vertigo and demonstrated up- beating, torsional nystagmus lasting approximately 15 seconds, consistent with diagnosis of left/right-sided posterior canal BPPV, canalithiasis-type. Upon rolling to the right for the second step of the Jung maneuver, pt's nystagmus changed to down-beating torsional lasting 20 seconds. This could be a sign of right- sided anterior canal BPPV, which is incredibly rare, or it may be a sign of otolith stuck in the short-arm of her left posterior canal, which is also very rare. Due to her recent head injury, both of these things may be slightly more likely, but best scenario will likely be to treat left posterior canal, and then determine which symptoms remain afterward. Physical Therapy Plan Frequency and Duration Frequency of Treatment 2x/Week Duration of Treatment 6 weeks Plan of Care Start Date 06/10/20 Plan of Care End Date 07/22/20 Therapeutic Interventions Therapeutic Interventions Balance Training,Canalithic Repositioning,Patient/ Caregiver Education,Self-Care/ Home Management,Therapeutic Exercises,Vestibular Rehabilitation Next Visit Focus/Plan Next Note Type Treatment Note Next Visit Plan Positional testing, CRM as indicated Plan of Care Dates Plan of Care Start Date 06/10/20 Plan of Care End Date 07/22/20 Electronically Signed by: Jax Rodrigues, PT 06/10/20 1866 Please Sign and Return: I have reviewed this Plan of Care and certify that the skilled therapy services above are required to meet the patient?s needs. Physician Signature Date Printed Name and Credentials Clinical Instructor Signature Printed Name and Credentials
--- NOTE | 2020-06-18 11:24 | PT.OTN ---
Current Diagnoses Meniere's disease, left ear (06/18/20) Benign paroxysmal vertigo, right ear (06/18/20) Dizziness and giddiness (06/18/20) History of falling (06/18/20) Physical Therapy Treatment Note PT-OP-A Visit Information Start: 06/10/20 17:46 Freq: Status: Active Protocol: Document 06/18/20 09:45 DCW (Rec: 06/18/20 10:52 DCW [id number]) Out-Patient Physical Therapy Visit Information Visit Information Visit Type Treatment Note Visit Start Time 09:45 Visit Stop Time 10:40 Total Visit Minutes 55 Visit Number 2 Number of FAMILY PHYSICIAN Visits 0 Evaluation Information Evaluation Date 06/10/20 PT-OP-B Current Condition Start: 06/10/20 17:46 Freq: Status: Active Protocol: Document 06/10/20 13:45 DCW (Rec: 06/10/20 17:53 DCW [id number]) Current Condition History of Current Condition Onset Date 06/08/20 Current Complaints Position-dependent vertigo History of Current Condition Pt is a 74 year old female complaining of a two day history of motion-induced vertigo. Pt has been treated at this clinic for BPPV multiple times in the past, and notes that these symptoms are exactly the same. Pt notes that she fell almost one week ago and badly hit her head, reports she was not dizzy at the time of the fall, but has noticed her symptoms return since then. Pt denies recent hearing changes, tinnitus, diplopia, dysarthria , discoordination, or decreased mentation/ consciousness. Pt reports symptoms are not waxing/waning in nature. PT-OP-C Subjective Start: 06/10/20 17:46 Freq: Status: Active Protocol: Document 06/18/20 09:45 DCW (Rec: 06/18/20 10:52 DCW [id number]) OP-PT Subjective Patient Comments Patient Comments It's different than the normal times I have it. Symptoms are still present every time pt lies down. PT-OP-O Vestibular Start: 06/10/20 17:46 Freq: Status: Active Protocol: Document 06/18/20 09:45 DCW (Rec: 06/18/20 10:52 DCW [id number]) Vestibular Assessment Positional Testing [place]-Hallpike Positive Left,Positive Right, Upbeating,Downbeating,< 60 Seconds Comments Vestibular Comments Once again, during left [place]- Hallpike test, pt complained of vertigo and demonstrated up -beating, torsional nystagmus lasting approximately 15 seconds. Upon rolling to the right for the second step of the Jung maneuver, pt's nystagmus changed to down- beating torsional lasting 20 seconds. After several L Jung maneuvers, pt exhibited conversion to horizontal canal BPPV, with severe geotropic nystagmus PT-OP-Q Treatments Start: 06/10/20 17:46 Freq: Status: Active Protocol: Document 06/18/20 09:45 DCW (Rec: 06/18/20 10:52 DCW [id number]) Canalithic Repositioning BPPV Treatment G[place] Affected Canal(s) Left Horizontal Reps x2 Jung Affected Canal(s) Left posterior Reps x4 PT-OP-T Assessment and Plan Start: 06/10/20 17:46 Freq: Status: Active Protocol: Document 06/18/20 09:45 DCW (Rec: 06/18/20 10:52 DCW [id number]) Physical Therapy Assessment Impairments Impairments Balance,Vestibular Goals Two Impairment Positional vertigo Leather Softener Goal (LTG) Pt will present with no dizziness or nystagmus with rolling in bed or BPPV testing to improve bed mobility LTG Duration 07/11/20 One Impairment DHI score of 20% Mcc Goal (LTG) Pt to score <6% on DHI LTG Duration 07/11/20 Assessment Summary Assessment Once again, during left [place]- Hallpike test, pt complained of vertigo and demonstrated up -beating, torsional nystagmus lasting approximately 15 seconds. Upon rolling to the right for the second step of the Jung maneuver, pt's nystagmus changed to down- beating torsional lasting 20 seconds. After several L Jung maneuvers, pt exhibited conversion to horizontal canal BPPV, with severe geotropic nystagmus. Gufoni maneuver x2 was performed, with the second time displaying minimal complaints of vertigo and no nystagmus. Pt felt very unstable following this many CRM, and was instructed to wait in the waiting room to ensure she was safe to drive. Pt's anterior canal symptoms not addressed today, but may be cautiously optimistic that both posterior and horizontal canals have been improved upon . Physical Therapy Plan Frequency and Duration Frequency of Treatment 2x/Week Duration of Treatment 6 weeks Plan of Care Start Date 06/10/20 Plan of Care End Date 07/22/20 Therapeutic Interventions Therapeutic Interventions Balance Training,Canalithic Repositioning,Patient/ Caregiver Education,Self-Care/ Home Management,Therapeutic Exercises,Vestibular Rehabilitation Next Visit Focus/Plan Next Note Type Treatment Note Next Visit Plan Positional testing, CRM as indicated
--- NOTE | 2020-07-02 14:22 | PT.OTN ---
Current Diagnoses Meniere's disease, left ear (07/02/20) Benign paroxysmal vertigo, right ear (07/02/20) Dizziness and giddiness (07/02/20) History of falling (07/02/20) Physical Therapy Treatment Note PT-OP-A Visit Information Start: 06/10/20 17:46 Freq: Status: Active Protocol: Document 07/02/20 13:45 DCW (Rec: 07/02/20 14:21 DCW [id number]) Out-Patient Physical Therapy Visit Information Visit Information Visit Type Treatment Note Visit Start Time 13:45 Visit Stop Time 14:00 Total Visit Minutes 15 Visit Number 3 Number of PRODUCTION MECHANIC TIN CANS Visits 0 Evaluation Information Evaluation Date 06/10/20 PT-OP-B Current Condition Start: 06/10/20 17:46 Freq: Status: Active Protocol: Document 06/10/20 13:45 DCW (Rec: 06/10/20 17:53 DCW [id number]) Current Condition History of Current Condition Onset Date 06/08/20 Current Complaints Position-dependent vertigo History of Current Condition Pt is a 74 year old female complaining of a two day history of motion-induced vertigo. Pt has been treated at this clinic for BPPV multiple times in the past, and notes that these symptoms are exactly the same. Pt notes that she fell almost one week ago and badly hit her head, reports she was not dizzy at the time of the fall, but has noticed her symptoms return since then. Pt denies recent hearing changes, tinnitus, diplopia, dysarthria , discoordination, or decreased mentation/ consciousness. Pt reports symptoms are not waxing/waning in nature. PT-OP-C Subjective Start: 06/10/20 17:46 Freq: Status: Active Protocol: Document 07/02/20 13:45 DCW (Rec: 07/02/20 14:22 DCW [id number]) OP-PT Subjective Patient Comments Patient Comments I think all that extra stuff from last time got taken care of. I might still have some remaining loose crystals, I'm not sure. Patient Reported Progress Improving PT-OP-O Vestibular Start: 06/10/20 17:46 Freq: Status: Active Protocol: Document 07/02/20 13:45 DCW (Rec: 07/02/20 14:21 DCW [id number]) Vestibular Assessment Positional Testing [place]-Hallpike Negative Left,Negative Right Rolling Test Negative Left,Negative Right PT-OP-Q Treatments Start: 06/10/20 17:46 Freq: Status: Active Protocol: Document 07/02/20 13:45 DCW (Rec: 07/02/20 14:21 DCW [id number]) Manual Therapy Treatment Other Other Manual Treatments Positional testing PT-OP-T Assessment and Plan Start: 06/10/20 17:46 Freq: Status: Active Protocol: Document 07/02/20 13:45 DCW (Rec: 07/02/20 14:21 DCW [id number]) Physical Therapy Assessment Impairments Impairments Balance,Vestibular Goals Two Impairment Positional vertigo Skilled Nursing Goal (LTG) Pt will present with no dizziness or nystagmus with rolling in bed or BPPV testing to improve bed mobility LTG Duration 07/11/20 One Impairment DHI score of 20% Senior Logistics Manager Goal (LTG) Pt to score <6% on DHI LTG Duration 07/11/20 Assessment Summary Assessment Positional testing completely negative today. Pt would like to keep her one remaining appointment next week to ensure her symptoms do not return. If next week testing is negative, pt will likely be discharged. Physical Therapy Plan Frequency and Duration Frequency of Treatment 2x/Week Duration of Treatment 6 weeks Plan of Care Start Date 06/10/20 Plan of Care End Date 07/22/20 Therapeutic Interventions Therapeutic Interventions Balance Training,Canalithic Repositioning,Patient/ Caregiver Education,Self-Care/ Home Management,Therapeutic Exercises,Vestibular Rehabilitation Next Visit Focus/Plan Next Note Type Treatment Note Next Visit Plan Positional testing, CRM as indicated
--- NOTE | 2020-10-06 12:25 | PT.OPDS ---
Current Diagnoses Meniere's disease, left ear (07/02/20) Benign paroxysmal vertigo, right ear (07/02/20) Dizziness and giddiness (07/02/20) History of falling (07/02/20) Visit Care Team Role Provider Type Tiffany Greene DO Attending Provider Physician Primary Care Provider Referring Provider Specialty: [facility] Address: [address] [place] [address], [facility] Email: [email or web address] Visit Number Visit Number 3 Discharge Summary PT-OP-B Current Condition Start: 06/10/20 17:46 Freq: Status: Active Protocol: Document 06/10/20 13:45 DCW (Rec: 06/10/20 17:53 DCW [id number]) Current Condition History of Current Condition Onset Date 06/08/20 Current Complaints Position-dependent vertigo History of Current Condition Pt is a 74 year old female complaining of a two day history of motion-induced vertigo. Pt has been treated at this clinic for BPPV multiple times in the past, and notes that these symptoms are exactly the same. Pt notes that she fell almost one week ago and badly hit her head, reports she was not dizzy at the time of the fall, but has noticed her symptoms return since then. Pt denies recent hearing changes, tinnitus, diplopia, dysarthria , discoordination, or decreased mentation/ consciousness. Pt reports symptoms are not waxing/waning in nature. PT-OP-C Subjective Start: 06/10/20 17:46 Freq: Status: Active Protocol: Document 07/02/20 13:45 DCW (Rec: 07/02/20 14:22 DCW [id number]) OP-PT Subjective Patient Comments Patient Comments I think all that extra stuff from last time got taken care of. I might still have some remaining loose crystals, I'm not sure. Patient Reported Progress Improving PT-OP-O Vestibular Start: 06/10/20 17:46 Freq: Status: Active Protocol: Document 07/02/20 13:45 DCW (Rec: 07/02/20 14:21 DCW [id number]) Vestibular Assessment Positional Testing [place]-Hallpike Negative Left,Negative Right Rolling Test Negative Left,Negative Right PT-OP-T Assessment and Plan Start: 06/10/20 17:46 Freq: Status: Active Protocol: Document 10/06/20 12:24 DCW (Rec: 10/06/20 12:25 DCW [id number]) Physical Therapy Assessment Assessment Summary Assessment Pt had requested one final appointment, however she then canceled that visit, and has now not been seen in three months. Pt will be discharged from skilled therapy at this time, and will require a new referral in order to return to therapy.
== END 2020-10-09 13:16 | disposition home or self-care (01) ==
LOC: PHYS 13:45
PROVIDERS: PCP Family Medicine; Referring Provider Family Medicine; Visit Provider Family Medicine
DX: H81.11 Benign paroxysmal vertigo, right ear (principal); H81.02 Meniere's disease, left ear; Z91.81 History of falling
CPT/HCPCS: 95992; 97140; 97161

== ENCOUNTER 2020-12-02 12:00 | Outpatient (RCR) | payer MEDICARE, OTHER, SELFPAY ==
--- NOTE | 2020-10-08 17:37 | PT.OIE ---
Current Diagnoses Benign paroxysmal vertigo, left ear (10/08/20) Dizziness and giddiness (10/08/20) Past Medical History (Last Reviewed 08/21/19 @ 13:02 by Tiffany Greene DO) Hearing loss (Chronic) Heavy menstrual period (Resolved) Neck pain (Resolved) Painful menstrual periods (Resolved) Sinus drainage (Chronic) Thyroid nodule (Chronic) Tinnitus (Chronic) Uterine cancer (Chronic ~2011) Vertigo (Chronic) Vision disorder (Chronic) Past Surgical History (Last Reviewed 08/21/19 @ 13:02 by Tiffany Greene DO) Anesthesia (Resolved) Status post cholecystectomy (~1963) Status post hysterectomy (~2011) Visit Care Team Role Provider Type Tiffany Greene DO Attending Provider Physician Family Provider Primary Care Provider Referring Provider Specialty: Family Practice Address: [address] [place] [address], [facility] Email: [email or web address] Physical Therapy Initial Evaluation PT-OP-A Visit Information Start: 10/08/20 17:19 Freq: Status: Active Protocol: Document 10/08/20 10:45 DCW (Rec: 10/08/20 17:36 DCW [id number]) Out-Patient Physical Therapy Visit Information Visit Information Visit Type Initial Evaluation Visit Note 30 min late Visit Start Time 10:45 Visit Stop Time 11:15 Total Visit Minutes 30 Visit Number 1 Number of ASSISTANT BRAND MANAGER Visits 0 Evaluation Information Evaluation Date 10/08/20 PT-OP-B Current Condition Start: 10/08/20 17:19 Freq: Status: Active Protocol: Document 10/08/20 10:45 DCW (Rec: 10/08/20 17:36 DCW [id number]) Current Condition History of Current Condition Onset Date 3 day history Current Complaints Position-dependent vertigo History of Current Condition Pt is a 75 year old female complaining of a 3 day history of spontaneous/motion-induced vertigo and imbalance. Pt is well known to this clinic, and has been seen numerous times for recurrent BPPV. Pt walks in today very unstable, reports that this feels much different than her usual BPPV, and is much more of a constant imbalance. Pt reports symptoms are provoked by any head movement, lying flat, or bending over, but she is still unstable when up walking around. Pt denies recent hearing changes, tinnitus, diplopia, dysarthria, discoordination, or decreased mentation/consciousness. Pt notes she has not had any change in status since she was last here for treatment in May. Prior Treatments and Tests CRM for prior history of BPPV PT-OP-C Subjective Start: 10/08/20 17:19 Freq: Status: Active Protocol: Document 10/08/20 10:45 DCW (Rec: 10/08/20 17:36 DCW [id number]) OP-PT Subjective Patient Comments Patient Comments It started when I had to lie flat for a seperate medical procedure. Patient Reported Progress Worse Patient Questionnaires Dizziness Handicap Inventory DHI Score 40% DHI Functional Impairment 40 to 59% Impaired (Score 40- 59) PT-OP-H Neuro Start: 10/08/20 17:36 Freq: Status: Active Protocol: Document 10/08/20 10:45 DCW (Rec: 10/08/20 17:37 DCW [id number]) Coordination Evaluation Upper Extremity Tests Right Pronation/Supination Test Normal Performance Left Pronation/Supination Test Normal Performance Lower Extremity Tests Right Heel on Dubon Test Normal Performance Left Heel on Dubon Test Normal Performance PT-OP-O Vestibular Start: 10/08/20 17:19 Freq: Status: Active Protocol: Document 10/08/20 10:45 DCW (Rec: 10/08/20 17:36 DCW [id number]) Vestibular Assessment Screening Tests Vestibular Artery Screen Negative Visual Testing Smooth Pursuits Horizontal WNL Smooth Pursuits Vertical WNL Saccades Horizontal WNL Gaze Evoked Nystagmus With Fixation Negative Gaze Evoked Nystagmus Without Fixation Negative Head Shake Negative Positional Testing [place]-Hallpike Positive Right,Negative Left, Downbeating,< 60 Seconds PT-OP-Q Treatments Start: 10/08/20 17:19 Freq: Status: Active Protocol: Document 10/08/20 10:45 DCW (Rec: 10/08/20 17:36 DCW [id number]) Canalithic Repositioning BPPV Treatment Other Affected Canal(s) L Anterior Reps x2 Comments Head hang Jung Affected Canal(s) L Anterior? Reps x1 PT-OP-T Assessment and Plan Start: 10/08/20 17:19 Freq: Status: Active Protocol: Document 10/08/20 10:45 DCW (Rec: 10/08/20 17:36 DCW [id number]) Physical Therapy Assessment Rehab Potential Rehabilitation Potential Good Evaluation Complexity Number of Personal Factors/Comorbidities 1-2 Number of Body Systems Impaired 3 Clinical Presentation at Evaluation Unstable Impairments Impairments Balance,Vestibular Goals Two Impairment Positional vertigo Museum Host/Hostess Goal (LTG) Pt will present with no dizziness or nystagmus with rolling in bed or BPPV testing to improve bed mobility LTG Duration 12/08/20 One Impairment DHI score of 40% Museum Host/Hostess Goal (LTG) Pt to score <10% on DHI LTG Duration 12/08/20 Assessment Summary Assessment During right [place]-Hallpike test , pt complained of vertigo and demonstrated down-beating, torsional nystagmus lasting approximately 25 seconds, consistent with 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 This type of BPPV is very unusual, although pt has previously showed signs of it at previous evaluations, and was treated successfully with CRM. All other peripheral and central vertigo tests were negative, although since pt showed up to her evaluation 30 minutes late, the evaluation was abbreviated. Pt was treated with two deep head hang maneuvers and an Jung, and was able to walk out much more stable and with a significantly faster raphael, however was still having difficulty with path deviation . Recommended pt use a cane until she could be seen again and reassessed. Physical Therapy Plan Frequency and Duration Frequency of Treatment 2x/Week Duration of Treatment Two months Plan of Care Start Date 10/08/20 Plan of Care End Date 12/08/20 Next Visit Focus/Plan Next Note Type Treatment Note Next Visit Plan Positional testing, CRM as indicated
--- NOTE | 2020-10-08 17:38 | PT.OPPOC ---
Physical, Occupational & Speech Therapy At [facility] Current Diagnoses Benign paroxysmal vertigo, left ear (10/08/20) Dizziness and giddiness (10/08/20) Visit Care Team Role Provider Type Tiffany Greene DO Attending Provider Physician Family Provider Primary Care Provider Referring Provider Specialty: Family Practice Address: [address] [place] [address], [place], [place], [facility] Email: [email or web address] Plan Of Care PT-OP-T Assessment and Plan Start: 10/08/20 17:19 Freq: Status: Active Protocol: Document 10/08/20 10:45 DCW (Rec: 10/08/20 17:36 DCW [id number]) Physical Therapy Assessment Rehab Potential Rehabilitation Potential Good Evaluation Complexity Number of Personal Factors/Comorbidities 1-2 Number of Body Systems Impaired 3 Clinical Presentation at Evaluation Unstable Impairments Impairments Balance,Vestibular Goals Two Impairment Positional vertigo Oracle Scm Consultant Goal (LTG) Pt will present with no dizziness or nystagmus with rolling in bed or BPPV testing to improve bed mobility LTG Duration 12/08/20 One Impairment DHI score of 40% Oracle Scm Consultant Goal (LTG) Pt to score <10% on DHI LTG Duration 12/08/20 Assessment Summary Assessment During right [place]-Hallpike test , pt complained of vertigo and demonstrated down-beating, torsional nystagmus lasting approximately 25 seconds, consistent with 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 This type of BPPV is very unusual, although pt has previously showed signs of it at previous evaluations, and was treated successfully with CRM. All other peripheral and central vertigo tests were negative, although since pt showed up to her evaluation 30 minutes late, the evaluation was abbreviated. Pt was treated with two deep head hang maneuvers and an Jung, and was able to walk out much more stable and with a significantly faster raphael, however was still having difficulty with path deviation . Recommended pt use a cane until she could be seen again and reassessed. Physical Therapy Plan Frequency and Duration Frequency of Treatment 2x/Week Duration of Treatment Two months Plan of Care Start Date 10/08/20 Plan of Care End Date 12/08/20 Next Visit Focus/Plan Next Note Type Treatment Note Next Visit Plan Positional testing, CRM as indicated Plan of Care Dates Plan of Care Start Date 10/08/20 Plan of Care End Date 12/08/20 Electronically Signed by: Jax Rodrigues, PT 10/08/20 6815 Please Sign and Return: I have reviewed this Plan of Care and certify that the skilled therapy services above are required to meet the patient?s needs. Physician Signature Date Printed Name and Credentials Clinical Instructor Signature Printed Name and Credentials
--- NOTE | 2020-10-14 10:34 | PT.OTN ---
Current Diagnoses Benign paroxysmal vertigo, left ear (10/14/20) Dizziness and giddiness (10/14/20) Physical Therapy Treatment Note PT-OP-A Visit Information Start: 10/08/20 17:19 Freq: Status: Active Protocol: Document 10/14/20 09:45 DCW (Rec: 10/14/20 10:31 DCW [id number]) Out-Patient Physical Therapy Visit Information Visit Information Visit Type Treatment Note Visit Start Time 09:45 Visit Stop Time 10:30 Total Visit Minutes 45 Visit Number 2 Number of SENIOR ACCOUNTING MANAGER Visits 0 Evaluation Information Evaluation Date 10/08/20 PT-OP-B Current Condition Start: 10/08/20 17:19 Freq: Status: Active Protocol: Document 10/08/20 10:45 DCW (Rec: 10/08/20 17:36 DCW [id number]) Current Condition History of Current Condition Onset Date 3 day history Current Complaints Position-dependent vertigo History of Current Condition Pt is a 75 year old female complaining of a 3 day history of spontaneous/motion-induced vertigo and imbalance. Pt is well known to this clinic, and has been seen numerous times for recurrent BPPV. Pt walks in today very unstable, reports that this feels much different than her usual BPPV, and is much more of a constant imbalance. Pt reports symptoms are provoked by any head movement, lying flat, or bending over, but she is still unstable when up walking around. Pt denies recent hearing changes, tinnitus, diplopia, dysarthria, discoordination, or decreased mentation/consciousness. Pt notes she has not had any change in status since she was last here for treatment in May. Prior Treatments and Tests CRM for prior history of BPPV PT-OP-C Subjective Start: 10/08/20 17:19 Freq: Status: Active Protocol: Document 10/14/20 09:45 DCW (Rec: 10/14/20 10:31 DCW [id number]) OP-PT Subjective Patient Comments Patient Comments Pt has improved somewhat, but still very unstable. It's like walking on a ship that's bobbing around. I'm listing [id number]. PT-OP-H Neuro Start: 10/08/20 17:36 Freq: Status: Active Protocol: Document 10/08/20 10:45 DCW (Rec: 10/08/20 17:37 DCW [id number]) Coordination Evaluation Upper Extremity Tests Right Pronation/Supination Test Normal Performance Left Pronation/Supination Test Normal Performance Lower Extremity Tests Right Heel on Dubon Test Normal Performance Left Heel on Dubon Test Normal Performance PT-OP-O Vestibular Start: 10/08/20 17:19 Freq: Status: Active Protocol: Document 10/14/20 09:45 DCW (Rec: 10/14/20 10:31 DCW [id number]) Vestibular Assessment Visual Testing Heave Test Positive Bilateral Thrust Head Positive Bilateral Positional Testing [place]-Hallpike Positive Right,Downbeating,< 60 Seconds PT-OP-Q Treatments Start: 10/08/20 17:19 Freq: Status: Active Protocol: Document 10/14/20 09:45 DCW (Rec: 10/14/20 10:33 DCW [id number]) Manual Therapy Treatment Other Other Manual Treatments Positional testing Canalithic Repositioning BPPV Treatment Other Affected Canal(s) L Anterior Reps x3 Comments Head hang PT-OP-T Assessment and Plan Start: 10/08/20 17:19 Freq: Status: Active Protocol: Document 10/14/20 09:45 DCW (Rec: 10/14/20 10:31 DCW [id number]) Physical Therapy Assessment Impairments Impairments Balance,Vestibular Goals Two Impairment Positional vertigo Welder Production Line Combination Goal (LTG) Pt will present with no dizziness or nystagmus with rolling in bed or BPPV testing to improve bed mobility LTG Duration 12/08/20 One Impairment DHI score of 40% Welder Production Line Combination Goal (LTG) Pt to score <10% on DHI LTG Duration 12/08/20 Assessment Summary Assessment Today, pt again complained of vertigo and demonstrated down- beating, torsional nystagmus lasting approximately 10 seconds, consistent with potential diagnosis of left- sided anterior canal BPPV. Although having anterior canal BPPV is very unusual, and down-beating nystagmus can be cause for concern regarding other centrally caused vertigo , pt symptoms are still exactly what would be expected from BPPV. Pt has a latency period, symptoms last 5-10 seconds, and seems to be responding well to CRM. Pt was treated with three deep head hang maneuvers, and is again walking with improved stability, but still wobbly. Physical Therapy Plan Frequency and Duration Frequency of Treatment 2x/Week Duration of Treatment Two months Plan of Care Start Date 10/08/20 Plan of Care End Date 12/08/20 Next Visit Focus/Plan Next Note Type Treatment Note Next Visit Plan Positional testing, CRM as indicated
--- NOTE | 2020-12-02 12:24 | PT.OTN ---
Current Diagnoses Benign paroxysmal vertigo, left ear (12/02/20) Dizziness and giddiness (12/02/20) Physical Therapy Treatment Note PT-OP-A Visit Information Start: 10/08/20 17:19 Freq: Status: Active Protocol: Document 12/02/20 12:05 DCW (Rec: 12/02/20 12:24 DCW [id number]) Out-Patient Physical Therapy Visit Information Visit Information Visit Type Treatment Note Visit Start Time 12:05 Visit Stop Time 12:21 Total Visit Minutes 16 Visit Number 3 Number of RADIO INTERFERENCE SUPERVISOR Visits 0 Evaluation Information Evaluation Date 10/08/20 PT-OP-B Current Condition Start: 10/08/20 17:19 Freq: Status: Active Protocol: Document 10/08/20 10:45 DCW (Rec: 10/08/20 17:36 DCW [id number]) Current Condition History of Current Condition Onset Date 3 day history Current Complaints Position-dependent vertigo History of Current Condition Pt is a 75 year old female complaining of a 3 day history of spontaneous/motion-induced vertigo and imbalance. Pt is well known to this clinic, and has been seen numerous times for recurrent BPPV. Pt walks in today very unstable, reports that this feels much different than her usual BPPV, and is much more of a constant imbalance. Pt reports symptoms are provoked by any head movement, lying flat, or bending over, but she is still unstable when up walking around. Pt denies recent hearing changes, tinnitus, diplopia, dysarthria, discoordination, or decreased mentation/consciousness. Pt notes she has not had any change in status since she was last here for treatment in May. Prior Treatments and Tests CRM for prior history of BPPV PT-OP-C Subjective Start: 10/08/20 17:19 Freq: Status: Active Protocol: Document 12/02/20 12:05 DCW (Rec: 12/02/20 12:24 DCW [id number]) OP-PT Subjective Patient Comments Patient Comments I'm doing fine today. It took a few days after my last visit, but I haven't had any real bad episodes since then. I have had two or three small little things, but all better than what it had been. PT-OP-H Neuro Start: 10/08/20 17:36 Freq: Status: Active Protocol: Document 10/08/20 10:45 DCW (Rec: 10/08/20 17:37 DCW [id number]) Coordination Evaluation Upper Extremity Tests Right Pronation/Supination Test Normal Performance Left Pronation/Supination Test Normal Performance Lower Extremity Tests Right Heel on Dubon Test Normal Performance Left Heel on Dubon Test Normal Performance PT-OP-O Vestibular Start: 10/08/20 17:19 Freq: Status: Active Protocol: Document 12/02/20 12:05 DCW (Rec: 12/02/20 12:24 DCW [id number]) Vestibular Assessment Positional Testing [place]-Hallpike Negative Left,Negative Right Rolling Test Negative Left,Negative Right PT-OP-Q Treatments Start: 10/08/20 17:19 Freq: Status: Active Protocol: Document 12/02/20 12:05 DCW (Rec: 12/02/20 12:24 DCW [id number]) Manual Therapy Treatment Other Other Manual Treatments Positional testing PT-OP-T Assessment and Plan Start: 10/08/20 17:19 Freq: Status: Active Protocol: Document 12/02/20 12:05 DCW (Rec: 12/02/20 12:24 DCW [id number]) Physical Therapy Assessment Impairments Impairments Balance,Vestibular Goals Two Impairment Positional vertigo Long-Term Goal (LTG) Pt will present with no dizziness or nystagmus with rolling in bed or BPPV testing to improve bed mobility LTG Duration 12/08/20 One Impairment DHI score of 40% Wallpaper Hanger Helper Goal (LTG) Pt to score <10% on DHI LTG Duration 12/08/20 Assessment Summary Assessment Positional testing negative today, no current complaints of vertigo. Pt very leery of discharge, due to her history of multiple recurrences. Therapist agreeable to scheduling a follow-up in four weeks to ensure no recurrence , and if testing is again negative at that time, will discharge. Physical Therapy Plan Frequency and Duration Frequency of Treatment 2x/Week Duration of Treatment Two months Plan of Care Start Date 10/08/20 Plan of Care End Date 12/08/20 Next Visit Focus/Plan Next Note Type Treatment Note Next Visit Plan Positional testing, CRM as indicated
--- NOTE | 2021-02-11 11:28 | PT.OPDS ---
Current Diagnoses Benign paroxysmal vertigo, left ear (12/02/20) Dizziness and giddiness (12/02/20) Visit Care Team Role Provider Type Tiffany Greene DO Attending Provider Physician Family Provider Primary Care Provider Referring Provider Specialty: [facility] Address: [address] [place] [address], [facility] [place], [address] Email: [email or web address] Visit Number Visit Number 3 Discharge Summary PT-OP-B Current Condition Start: 10/08/20 17:19 Freq: Status: Active Protocol: Document 10/08/20 10:45 DCW (Rec: 10/08/20 17:36 DCW [id number]) Current Condition History of Current Condition Onset Date 3 day history Current Complaints Position-dependent vertigo History of Current Condition Pt is a 75 year old female complaining of a 3 day history of spontaneous/motion-induced vertigo and imbalance. Pt is well known to this clinic, and has been seen numerous times for recurrent BPPV. Pt walks in today very unstable, reports that this feels much different than her usual BPPV, and is much more of a constant imbalance. Pt reports symptoms are provoked by any head movement, lying flat, or bending over, but she is still unstable when up walking around. Pt denies recent hearing changes, tinnitus, diplopia, dysarthria, discoordination, or decreased mentation/consciousness. Pt notes she has not had any change in status since she was last here for treatment in May. Prior Treatments and Tests CRM for prior history of BPPV PT-OP-C Subjective Start: 10/08/20 17:19 Freq: Status: Active Protocol: Document 12/02/20 12:05 DCW (Rec: 12/02/20 12:24 DCW [id number]) OP-PT Subjective Patient Comments Patient Comments I'm doing fine today. It took a few days after my last visit, but I haven't had any real bad episodes since then. I have had two or three small little things, but all better than what it had been. PT-OP-H Neuro Start: 10/08/20 17:36 Freq: Status: Active Protocol: Document 10/08/20 10:45 DCW (Rec: 10/08/20 17:37 DCW [id number]) Coordination Evaluation Upper Extremity Tests Right Pronation/Supination Test Normal Performance Left Pronation/Supination Test Normal Performance Lower Extremity Tests Right Heel on Dubon Test Normal Performance Left Heel on Dubon Test Normal Performance PT-OP-O Vestibular Start: 10/08/20 17:19 Freq: Status: Active Protocol: Document 12/02/20 12:05 DCW (Rec: 12/02/20 12:24 DCW [id number]) Vestibular Assessment Positional Testing [place]-Hallpike Negative Left,Negative Right Rolling Test Negative Left,Negative Right PT-OP-T Assessment and Plan Start: 10/08/20 17:19 Freq: Status: Active Protocol: Document 02/11/21 11:26 DCW (Rec: 02/11/21 11:28 DCW [id number]) Physical Therapy Assessment Assessment Summary Assessment At last session, pt was agreeable to hold PT for 4 weeks to make sure her symptoms did not return. Pt has now not been seen in more than two months, and did not call for any follow-up visits. Pt will be discharged at this time, and will require a new referral in order to return for vestibular therapy if symptoms return. Physical Therapy Plan Discharge Physical Therapy Discharge Reasons Goals Met
== END 2021-02-19 11:23 ==
LOC: PHYS 12:00
PROVIDERS: Family Provider Family Medicine; PCP Family Medicine; Referring Provider Family Medicine; Visit Provider Family Medicine
DX: H81.12 Benign paroxysmal vertigo, left ear (principal)
CPT/HCPCS: 95992; 97140; 97162

== ENCOUNTER 2021-02-25 09:30 | Outpatient (RCR) | payer MEDICARE, OTHER, SELFPAY ==
--- NOTE | 2021-02-25 10:28 | PT.OIE ---
Current Diagnoses Benign paroxysmal vertigo, left ear (02/25/21) Dizziness and giddiness (02/25/21) Past Medical History (Last Reviewed 08/21/19 @ 13:02 by Tiffany Greene DO) Hearing loss Heavy menstrual period Neck pain Painful menstrual periods Sinus drainage Thyroid nodule Tinnitus Uterine cancer (~2011) Vertigo Vision disorder Past Surgical History (Last Reviewed 08/21/19 @ 13:02 by Tiffany Greene DO) Anesthesia Status post cholecystectomy (~1963) Status post hysterectomy (~2011) Visit Care Team Role Provider Type Tiffany Greene DO Attending Provider Physician Family Provider Primary Care Provider Referring Provider Specialty: [facility] Practice Address: [address] [place] [address], [facility] Email: [email or web address] Physical Therapy Initial Evaluation PT-OP-A Visit Information Start: 02/25/21 10:18 Freq: Status: Active Protocol: Document 02/25/21 09:45 DCW (Rec: 02/25/21 10:28 DCW [id number]) Out-Patient Physical Therapy Visit Information Visit Information Visit Type Initial Evaluation Visit Start Time 09:45 Visit Stop Time 10:15 Total Visit Minutes 30 Visit Number 1 Number of GUIDE ESCORT Visits 0 Evaluation Information Evaluation Date 02/25/21 PT-OP-B Current Condition Start: 02/25/21 10:18 Freq: Status: Active Protocol: Document 02/25/21 09:45 DCW (Rec: 02/25/21 10:28 DCW [id number]) Current Condition History of Current Condition Onset Date One week Current Complaints Vertigo with lying down, turning onto left side History of Current Condition Pt is a 75 year old female who has attended multiple prior session of vestibular therapy for recurrent BPPV. Pt is now complaining of a one week history of motion-induced vertigo, which she reports is the same has her previous episodes. Pt reports episodes last a few seconds. Symptoms are provoked by lying down and rolling to her left side. Pt denies recent hearing changes, tinnitus, diplopia, dysarthria, discoordination, or decreased mentation/ consciousness. Prior Treatments and Tests Multiple prior BPPV episodes Personal Factors Other Personal Factors That May Effect Recurrent history of BPPV Therapy/Recovery PT-OP-C Subjective Start: 02/25/21 10:18 Freq: Status: Active Protocol: Document 02/25/21 09:45 DCW (Rec: 02/25/21 10:28 DCW [id number]) OP-PT Subjective Patient Comments Patient Comments I can tell it's the back canal, not that unusual top one that I have had a few times. Patient Questionnaires Dizziness Handicap Inventory DHI Score 10% DHI Functional Impairment 1 to 19% Impaired (Score 1-19) PT-OP-O Vestibular Start: 02/25/21 10:18 Freq: Status: Active Protocol: Document 02/25/21 09:45 DCW (Rec: 02/25/21 10:28 DCW [id number]) Vestibular Assessment Screening Tests Vestibular Artery Screen Negative Visual Testing Smooth Pursuits Horizontal WNL Smooth Pursuits Vertical WNL Saccades Horizontal WNL Positional Testing [place]-Hallpike Positive Left,Negative Right, Upbeating,< 60 Seconds PT-OP-Q Treatments Start: 02/25/21 10:18 Freq: Status: Active Protocol: Document 02/25/21 09:45 DCW (Rec: 02/25/21 10:28 DCW [id number]) Canalithic Repositioning BPPV Treatment Other Affected Canal(s) L Posterior Reps x2 Comments Modified Jung PT-OP-T Assessment and Plan Start: 02/25/21 10:18 Freq: Status: Active Protocol: Document 02/25/21 09:45 DCW (Rec: 02/25/21 10:28 DCW [id number]) Physical Therapy Assessment Rehab Potential Rehabilitation Potential Excellent Evaluation Complexity Number of Personal Factors/Comorbidities 0 Number of Body Systems Impaired 1-2 Clinical Presentation at Evaluation Unstable Impairments Impairments Balance,Functional Mobility, Vestibular Goals Two Impairment Positional vertigo Short Term Goal (STG) Pt will present with no dizziness or nystagmus with rolling in bed or BPPV testing to improve bed mobility STG Duration 03/27/21 One Impairment DHI score of 10% Component Prep Operator Goal (LTG) Pt to score <4% on DHI LTG Duration 03/27/21 Assessment Summary Assessment During left [place]-Hallpike test, pt complained of vertigo and demonstrated up-beating, torsional nystagmus lasting approximately 10 seconds, consistent with diagnosis of left-sided posterior canal BPPV, canalithiasis-type. Pt was treated with a left-sided modified Jung maneuver. Pt complained of symptoms in the first and third position, which is normally indicative of a successful treatment. Further positional testing was negative. Pt very well aware of BPPV information, expectations for treatment, possible recurrence (BPPV has a ~50% recurrence rate in the five years following treatment ), and post-Jung restrictions . Pt to return in ~1 week for a follow-up appointment, and intermittently afterward as indicated for treatment of BPPV. Physical Therapy Plan Frequency and Duration Frequency of Treatment 1-2x/week Duration of Treatment 6 weeks Plan of Care Start Date 02/25/21 Plan of Care End Date 04/08/21 Therapeutic Interventions Therapeutic Interventions Balance Training,Canalithic Repositioning,Vestibular Rehabilitation Next Visit Focus/Plan Next Note Type Treatment Note Next Visit Plan Positional testing, CRM as indicated
--- NOTE | 2021-02-25 10:28 | PT.OPPOC ---
Physical, Occupational & Speech Therapy At [facility] Current Diagnoses Benign paroxysmal vertigo, left ear (02/25/21) Dizziness and giddiness (02/25/21) Visit Care Team Role Provider Type Tiffany Greene DO Attending Provider Physician Family Provider Primary Care Provider Referring Provider Specialty: Family Practice Address: [address] [place] [address], [place], [place], [facility] Email: [email or web address] Plan Of Care PT-OP-T Assessment and Plan Start: 02/25/21 10:18 Freq: Status: Active Protocol: Document 02/25/21 09:45 DCW (Rec: 02/25/21 10:28 DCW [id number]) Physical Therapy Assessment Rehab Potential Rehabilitation Potential Excellent Evaluation Complexity Number of Personal Factors/Comorbidities 0 Number of Body Systems Impaired 1-2 Clinical Presentation at Evaluation Unstable Impairments Impairments Balance,Functional Mobility, Vestibular Goals Two Impairment Positional vertigo Short Term Goal (STG) Pt will present with no dizziness or nystagmus with rolling in bed or BPPV testing to improve bed mobility STG Duration 03/27/21 One Impairment DHI score of 10% Regional Sales Executive Goal (LTG) Pt to score <4% on DHI LTG Duration 03/27/21 Assessment Summary Assessment During left [place]-Hallpike test, pt complained of vertigo and demonstrated up-beating, torsional nystagmus lasting approximately 10 seconds, consistent with diagnosis of left-sided posterior canal BPPV, canalithiasis-type. Pt was treated with a left-sided modified Jung maneuver. Pt complained of symptoms in the first and third position, which is normally indicative of a successful treatment. Further positional testing was negative. Pt very well aware of BPPV information, expectations for treatment, possible recurrence (BPPV has a ~50% recurrence rate in the five years following treatment ), and post-Jung restrictions . Pt to return in ~1 week for a follow-up appointment, and intermittently afterward as indicated for treatment of BPPV. Physical Therapy Plan Frequency and Duration Frequency of Treatment 1-2x/week Duration of Treatment 6 weeks Plan of Care Start Date 02/25/21 Plan of Care End Date 04/08/21 Therapeutic Interventions Therapeutic Interventions Balance Training,Canalithic Repositioning,Vestibular Rehabilitation Next Visit Focus/Plan Next Note Type Treatment Note Next Visit Plan Positional testing, CRM as indicated Plan of Care Dates Plan of Care Start Date 02/25/21 Plan of Care End Date 04/08/21 Electronically Signed by: Jax Rodrigues, PT 02/25/21 1028 Please Sign and Return: I have reviewed this Plan of Care and certify that the skilled therapy services above are required to meet the patient?s needs. Physician Signature Date Printed Name and Credentials Clinical Instructor Signature Printed Name and Credentials
--- NOTE | 2021-03-17 10:05 | PT-OP ANOTE ---
Patient did not show up to her appointment today. Patient was phoned, and therapist left a voicemail reminding pt of her next appointment time.
--- NOTE | 2021-06-14 17:39 | PT.OPDS ---
Current Diagnoses Benign paroxysmal vertigo, left ear (02/25/21) Dizziness and giddiness (02/25/21) Visit Care Team Role Provider Type Tiffany Greene DO Attending Provider Physician Family Provider Primary Care Provider Referring Provider Specialty: [facility] Address: [address] [place] [address], [facility] [place], [address] Email: [email or web address] Visit Number Visit Number 1 Discharge Summary PT-OP-B Current Condition Start: 02/25/21 10:18 Freq: Status: Active Protocol: Document 02/25/21 09:45 DCW (Rec: 02/25/21 10:28 DCW [id number]) Current Condition History of Current Condition Onset Date One week Current Complaints Vertigo with lying down, turning onto left side History of Current Condition Pt is a 75 year old female who has attended multiple prior session of vestibular therapy for recurrent BPPV. Pt is now complaining of a one week history of motion-induced vertigo, which she reports is the same has her previous episodes. Pt reports episodes last a few seconds. Symptoms are provoked by lying down and rolling to her left side. Pt denies recent hearing changes, tinnitus, diplopia, dysarthria, discoordination, or decreased mentation/ consciousness. Prior Treatments and Tests Multiple prior BPPV episodes Personal Factors Other Personal Factors That May Effect Recurrent history of BPPV Therapy/Recovery PT-OP-C Subjective Start: 02/25/21 10:18 Freq: Status: Active Protocol: Document 02/25/21 09:45 DCW (Rec: 02/25/21 10:28 DCW [id number]) OP-PT Subjective Patient Comments Patient Comments I can tell it's the back canal, not that unusual top one that I have had a few times. Patient Questionnaires Dizziness Handicap Inventory DHI Score 10% DHI Functional Impairment 1 to 19% Impaired (Score 1-19) PT-OP-O Vestibular Start: 02/25/21 10:18 Freq: Status: Active Protocol: Document 02/25/21 09:45 DCW (Rec: 02/25/21 10:28 DCW [id number]) Vestibular Assessment Screening Tests Vestibular Artery Screen Negative Visual Testing Smooth Pursuits Horizontal WNL Smooth Pursuits Vertical WNL Saccades Horizontal WNL Positional Testing [place]-Hallpike Positive Left,Negative Right, Upbeating,< 60 Seconds PT-OP-T Assessment and Plan Start: 02/25/21 10:18 Freq: Status: Active Protocol: Document 06/14/21 17:38 DCW (Rec: 06/14/21 17:39 DCW [id number]) Physical Therapy Assessment Assessment Summary Assessment Pt no-showed to follow-up appointment, has now not been seen in more than three months , discharge from PT at this time.
== END 2021-06-15 08:32 | disposition home or self-care (01) ==
LOC: PHYS 09:30
PROVIDERS: Family Provider Family Medicine; PCP Family Medicine; Referring Provider Family Medicine; Visit Provider Family Medicine
DX: H81.12 Benign paroxysmal vertigo, left ear (principal)
CPT/HCPCS: 95992; 97161

== ENCOUNTER → 2023-09-04 14:50 | Outpatient (CLI) | payer MEDICARE, OTHER, SELFPAY ==
--- NOTE | 2023-09-04 | DI.RAD.S_ITS ---
PROCEDURE: XR HIP W PEL IF DONE LT 2V INDICATIONS: Presence of left artificial hip joint TECHNIQUE: AP pelvis and lateral view of the left hip acquired. COMPARISON: None. FINDINGS: Bones: Patient is status post left hip arthroplasty, with hardware components in expected positions. The hip joint appears congruent. The visualized bony structures appear intact. Soft tissues: Overlying postoperative changes are noted. No suspicious soft tissue densities. IMPRESSION: Expected postoperative appearance of a left total hip arthroplasty. No displaced fracture or complication. Dictated by: Derick Tanner M.D. on 09/04/2023 at 16:01 Approved by: Derick Tanner M.D. on 09/04/2023 at 16:02
== END ==
PROVIDERS: Family Provider Family Medicine; PCP Physician Assistant; Referring Provider Orthopaedic Surgery; Visit Provider Orthopaedic Surgery
DX: Z96.642 Presence of left artificial hip joint (principal)
CPT/HCPCS: 73502

== ENCOUNTER → 2023-10-04 14:15 | Outpatient (CLI) | payer MEDICARE, OTHER, SELFPAY ==
--- NOTE | 2023-10-04 | DI.RAD.S_ITS ---
PROCEDURE: XR HIP W PEL IF DONE LT 2V INDICATIONS: Presence of left artificial hip joint TECHNIQUE: AP pelvis and lateral view of the left hip acquired. COMPARISON: [facility], [place], XR HIP W PEL IF DONE LT 2V, 09/04/2023, 15:16. FINDINGS: Bones: Patient is status post left hip arthroplasty, with hardware components in expected positions. The hip joint appears congruent. The visualized bony structures appear intact. There is ndrrqhct-hj-vxrygv right hip joint degeneration. Soft tissues: Overlying postoperative changes are noted. No suspicious soft tissue densities. IMPRESSION: 1. Left knee total arthroplasty with expected postsurgical change. No fracture or dislocation. No radiographic findings to suggest prosthesis loosening. 2. Mjawtsvi-hk-bjsnws right hip joint degeneration. Dictated by: Rishabh Drummond M.D. on 10/04/2023 at 16:21 Approved by: Rishabh Drummond M.D. on 10/04/2023 at 16:24
== END ==
PROVIDERS: Family Provider Family Medicine; PCP Physician Assistant; Referring Provider Orthopaedic Surgery; Visit Provider Orthopaedic Surgery
DX: M16.11 Unilateral primary osteoarthritis, right hip (principal); M25.552 Pain in left hip; Z96.642 Presence of left artificial hip joint
CPT/HCPCS: 73502

== ENCOUNTER → 2024-03-21 07:57 | Outpatient (CLI) | payer MEDICARE, OTHER, SELFPAY ==
--- NOTE | 2024-03-21 08:00 | DI.ECHO.S_ITS ---
[facility] : : [address] : : [place] : : [id number] : : Phone: [phone] Echocardiogram Report + + :Name: AMOL JUAREZ Study Date: 03/21/2024 Height: 64 in : :[facility] ReadingLocation: Weight: 206 lb : : Gender: Female BSA: 2.0 m2 : :: 1945 Age: 78 yrs BP: 177/76 mmHg: :Reason For Study: MURMUR : :Ordering Physician: : :FLORINDA SAUCEDO Performed By: Patrick Barr : :Referring: FLORINDA SAUCEDO : + + Interpretation Summary Normal sinus rhythm. Normal LV size; mild-moderate concentric LVH. Normal wall motion and LV systolic function. EF is 60-65%. Mild LA enlargement; otherwise normal chamber sizes. 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 Aortic sclerosis without stenosis.Otherwise no valvular abnormalities. No prior study available for comparison. Procedure: A two-dimensional transthoracic echocardiogram with color flow and Doppler was performed. The study quality was technically adequate. There is no prior echocardiogram noted for this patient. The patient was in normal sinus rhythm during the exam. The heart rate ranged between 62-80 bpm during the study. Left Ventricle: The left ventricle is normal in size. There is mild-moderate concentric left ventricular hypertrophy. The ejection fraction is estimated to be 60-65%. Right Ventricle: The right ventricle is normal size. The right ventricular systolic function is normal. Atria: The left atrium is mildly dilated. Right atrial size is normal. The interatrial septum grossly appears intact with no obvious evidence for an atrial septal defect. Mitral Valve: The mitral valve is normal in structure and function. There is no mitral valve stenosis. There is trace mitral regurgitation. Aortic Valve: The aortic valve is grossly normal. There is no aortic valve stenosis. There is trace aortic regurgitation. Tricuspid Valve: The tricuspid valve is normal in structure and function. There is no tricuspid stenosis. No tricuspid regurgitation. Pulmonic Valve: The pulmonic valve is not well visualized. There is no pulmonic valvular stenosis. There is no pulmonic valvular regurgitation. Great Vessels: The aortic root is normal size. The dimensions of the ascending aorta are normal. The IVC is of normal diameter and collapses greater than 50% with a sniff. This suggests a low right atrial pressure of 3 mm Hg. Pericardium/ Pleura There is no pericardial effusion. There is no pleural effusion. MMode/2D Measurements & Calculations LVIDd: 4.8 cm LVOT diam: 1.9 cm LVIDs: 3.0 cm Ao root diam: 2.8 cm FS: 36.7 % asc Aorta Diam: 3.0 cm IVSd: 1.4 cm Ao Arch Diam (Prox Trans): 2.3 cm LVPWd: 1.4 cm LV crum. diameter/BSA (cm/m^2): 2.4 LV sys. diameter/BSA (cm/m^2): 1.5 LA A2 area: 22.3 cm2 RA long axis: 4.0 cm LA A4 area: 20.9 cm2 RA area: 10.6 cm2 LA length (vol): 5.7 cm RA vol: 24.0 ml LA vol: 68.9 ml RA : 12.1 ml/m2 LA vol index: 34.8 ml/m2 IVC diam: 1.9 cm RVD1 (basal): 3.8 cm RVD2 (mid): 2.6 cm TAPSE: 2.7 cm Doppler Measurements & Calculations Ao V2 max: 183.8 cm/sec LVOT Max Jon: 104.9 cm/sec Ao V2 mean: 127.6 cm/sec LV V1 max P.4 mmHg Ao max P.5 mmHg LV V1 VTI: 32.6 cm Ao mean P.1 mmHg MEGAN(I,D): 1.9 cm2 Ao V2 VTI: 49.0 cm MEGAN(V,D): 1.6 cm2 sev ratio: 0.66 MEGAN indexed to BSA (cm^2/m^2): 0.95 MV E max jon: 118.9 cm/sec PA V2 max: 121.1 cm/sec MV A max jon: 88.1 cm/sec PA V2 mean: 78.1 cm/sec MV E/A: 1.3 PA mean P.8 mmHg Med Peak E' Jon: 7.9 cm/sec PA pr(Accel): 51.6 mmHg E/E' med: 15.0 Lat Peak E' Jon: 8.2 cm/sec E/E' lat: 14.4 E/e' average: 14.7 MV dec time: 0.17 sec SV(LVOT): 92.7 ml Electronically signed by: Jigna Alfaro M.D. on Reading Physician:03/22/2024 12:42 AM
== END ==
PROVIDERS: Family Provider Family Medicine; PCP Physician Assistant; Referring Provider Nurse Practitioner Family; Visit Provider Nurse Practitioner Family
DX: I35.8 Other nonrheumatic aortic valve disorders (principal); R01.1 Cardiac murmur, unspecified; R06.09 Other forms of dyspnea
CPT/HCPCS: 93306